=== PATIENT | female | born 1995 | race Caucasian/White ===

== ENCOUNTER → 2018-09-23 10:14 | Outpatient (CLI) | payer OTHER, MEDICAID, SELFPAY ==
[2018-09-23 12:26] LABS: Hemoglobin 11.7 g/dL (12.0-16.0)
[2018-09-23 13:42] LABS: GTT (PREG) 1 Hour PP 50gm Dose 144 mg/dL (76-139)
[2018-09-23 15:35] LABS: Hep C Virus Ab w/Reflex Quant NEGATIVE s/c (NEGATIVE)
== END ==
PROVIDERS: PCP Family Medicine
DX: Z34.02 Encounter for supervision of normal first pregnancy, second trimester (principal)
CPT/HCPCS: 36415; 82950; 85014; 85018; 86787; 86803

== ENCOUNTER 2018-10-05 12:15 | Outpatient (CLI) | payer OTHER, MEDICAID, SELFPAY ==
[2018-10-05 14:01] LABS: Appearance Urine UA CLEAR; Bilirubin Urine UA NEGATIVE (NEGATIVE); Color Urine UA YELLOW; Glucose Urine UA NEGATIVE (Negative); Ketones Urine UA NEGATIVE (NEGATIVE); Leukocyte Esterase Urine UA NEGATIVE (NEGATIVE); Nitrite Urine UA NEGATIVE (Negative); Occult Blood Urine UA NEGATIVE (Negative); Protein Urine UA NEGATIVE (Negative); Specific Gravity Urine UA 1.015 (1.000-1.035); Urobilinogen Urine UA 0.2 E.U./dL (0.2)
== END 2018-10-05 14:15 | disposition home or self-care (01) ==
LOC: LABOR 13:00 → OB 10-07 11:38
PROVIDERS: Family Provider Internal Medicine; PCP Family Medicine
DX: Z34.83 Encounter for supervision of other normal pregnancy, third trimester (principal); Z3A.29 29 weeks gestation of pregnancy
CPT/HCPCS: 59025; 59050; 81003; G0378; G0379

== ENCOUNTER → 2018-10-11 06:49 | Outpatient (CLI) | payer OTHER, MEDICAID, SELFPAY ==
[2018-10-11 09:09] LABS: Glucose Fasting Gestational 68 mg/dL (76-95)
== END ==
PROVIDERS: PCP Family Medicine
DX: R73.09 Other abnormal glucose (principal); Z34.02 Encounter for supervision of normal first pregnancy, second trimester
CPT/HCPCS: 36415; 82951; 82952

== ENCOUNTER → 2018-10-15 06:45 | Outpatient (CLI) | payer OTHER, MEDICAID, SELFPAY ==
[2018-10-15 09:41] LABS: Glucose Fasting 67 mg/dL (70-100)
[2018-10-15 09:44] LABS: Glucose 1 Hour 176 mg/dL (70-170)
[2018-10-15 10:26] LABS: Glucose Tol Interpretation INTERPRETATION
[2018-10-15 11:32] LABS: Glucose 2 Hour 140 mg/dL (70-140)
[2018-10-15 11:33] LABS: Glucose 3 Hour 169 mg/dL (70-115)
== END ==
PROVIDERS: PCP Family Medicine
DX: R73.09 Other abnormal glucose (principal)
CPT/HCPCS: 36415; 82951; 82952

== ENCOUNTER 2018-10-22 16:02 | Observation (INO) | payer OTHER, MEDICAID, SELFPAY ==
--- NOTE | 2018-10-22 16:45 | DI.US.S_ITS ---
PROCEDURE: US OB TRANSVAGINAL INDICATIONS: CERVICAL LENGTH OUTSIDE/PRIOR DATING DATA: Last menstrual period (LMP): 03/20/2018. LMP-based estimated date of delivery (YVON): 12/25/2018. TECHNIQUE: Real-time scanning was performed of the fetus, with image documentation. Transabdominal and transvaginal imaging was performed. COMPARISON: None. FINDINGS: A single living intrauterine gestation is present. Presentation: Vertex Placenta: Placental position is posterior, without previa. Amniotic fluid index: A 17.1 cm, normal range is 5-24 cm. heart rate: 175 beats per minute. Maternal cervical canal: 3.0 cm long. Normal lower limit is 2.5 cm. IMPRESSION: Single living intrauterine gestation with an estimated gestational age of approximately 30 weeks and 6 days. Maternal cervical length measures 3.0 cm. No sonographic evidence for funneling of the internal cervical os. Dictated by: Usman Singletary M.D. on 10/22/2018 at 19:21 Approved by: Usman Singletary M.D. on 10/22/2018 at 19:24
--- NOTE | 2018-10-22 18:29 | PM.OBTRLD ---
Visit Information Visit Information Date of evaluation: 10/22/18 Primary OB Provider: Barry Powers Reason for Evaluation: Yes pre-term labor Vital Signs Vital Signs: Blood pressure 107/64, pulse 111, temperature 97.1? PFSH Surgical History Status post tonsillectomy and adenoidectomy Family History Grandfather Age: 73 Cancer Heart disease Hypertension High cholesterol Grandmother Age: 72 Cancer Hypertension High cholesterol Mother Age: 46 High cholesterol Kidney stones Grandfather Age: 77 Diabetes mellitus Heart disease Hypertension High cholesterol Grandmother Age: 75 Cancer High cholesterol Family History Grandfather Age: 73 Cancer Heart disease Hypertension High cholesterol Grandmother Age: 72 Cancer Hypertension High cholesterol Mother Age: 46 High cholesterol Kidney stones Grandfather Age: 77 Diabetes mellitus Heart disease Hypertension High cholesterol Grandmother Age: 75 Cancer High cholesterol Review of Systems Review of Systems Patient complaining of cramping no rupture of membranes no fevers good movement. All systems reviewed & are unremarkable except as noted in HPI and below Evaluation Evaluation Baseline heart rate: 150 Variability: Moderate (11-25) monitor accelerations: Present monitor decelerations: Absent Contraction Frequency (minutes): 8 Uterine Contraction Intensity: Mild Category of Tracing: I Comments: Cervical length by ultrasound 3 cm this is unchanged from prior measurements. Diagnosis, Plan/Disposition Final Diagnosis (1) 31 weeks gestation of : Current Visit: Yes Status: Acute (2) Premature uterine contractions causing threatened premature labor in third trimester: Current Visit: Yes Status: Acute Plan/Disposition Plan: No evidence of cervical effacement. Patient was sent home to continue bed rest and follow up at her previously scheduled appointment in 4 days. OB Disposition: home
== END 2018-10-22 18:40 | disposition home or self-care (01) ==
PROVIDERS: PCP Family Medicine
DX: O60.03 Preterm labor without delivery, third trimester (principal); Z3A.31 31 weeks gestation of pregnancy
CPT/HCPCS: 59025; 59050; 76817; G0378; G0379

== ENCOUNTER 2018-11-10 16:40 | Outpatient (CLI) | payer OTHER, MEDICAID, SELFPAY ==
--- NOTE | 2018-11-10 17:08 | PM.OBTRLD ---
Visit Information Visit Information Date of evaluation: 11/10/18 Primary OB Provider: Tania Montanez Reason for Evaluation: Yes non-stress test non-stress test reason: other ( tachycardia on Doppler in office) PFSH Surgical History Status post tonsillectomy and adenoidectomy Family History Grandfather Age: 73 Cancer Heart disease Hypertension High cholesterol Grandmother Age: 72 Cancer Hypertension High cholesterol Mother Age: 46 High cholesterol Kidney stones Grandfather Age: 77 Diabetes mellitus Heart disease Hypertension High cholesterol Grandmother Age: 75 Cancer High cholesterol Family History Grandfather Age: 73 Cancer Heart disease Hypertension High cholesterol Grandmother Age: 72 Cancer Hypertension High cholesterol Mother Age: 46 High cholesterol Kidney stones Grandfather Age: 77 Diabetes mellitus Heart disease Hypertension High cholesterol Grandmother Age: 75 Cancer High cholesterol Evaluation Evaluation Baseline heart rate: 150 Variability: Moderate (11-25) monitor accelerations: Present monitor decelerations: Absent Contraction Frequency (minutes): 0 Diagnosis, Plan/Disposition Final Diagnosis (1) 34 weeks gestation of : Current Visit: Yes Status: Acute (2) Antepartum tachycardia affecting care of mother: Current Visit: Yes Status: Acute Plan/Disposition Plan: Reactive nonstress test with baseline 150 just a lot of accelerations overall reassuring OB Disposition: home
== END 2018-11-10 17:12 | disposition home or self-care (01) ==
LOC: OB 11-11 13:57
PROVIDERS: PCP Family Medicine
DX: O36.8390 Maternal care for abnormalities of the fetal heart rate or rhythm, unspecified trimester, not applicable or unspecified (principal); R10.2 Pelvic and perineal pain; Z3A.34 34 weeks gestation of pregnancy
CPT/HCPCS: 59025; 81001; 87086; G0378; G0379

== ENCOUNTER → 2018-11-10 16:41 | Outpatient (CLI) | payer OTHER, MEDICAID, SELFPAY ==
[2018-11-10 19:31] LABS: Appearance Urine UA CLEAR; Bilirubin Urine UA NEGATIVE (NEGATIVE); Color Urine UA YELLOW; Glucose Urine UA NEGATIVE (Negative); Ketones Urine UA NEGATIVE (NEGATIVE); Leukocyte Esterase Urine UA NEGATIVE (NEGATIVE); Nitrite Urine UA NEGATIVE (Negative); Occult Blood Urine UA TRACE-LYSED (Negative); Protein Urine UA NEGATIVE (Negative); Urobilinogen Urine UA 0.2 E.U./dL (0.2); pH Urine UA 6.5 (4.5-8.0)
[2018-11-10 20:09] LABS: Amorphous Sediment Urine 1+; Bacteria Urine Moderate (10-30); Culture Indicated Urine Specimen Cultured; Mucus Urine 1+ (Negative); RBC Urine 0-1/HPF (0-5/HPF); Squamous Epithelial Cell Urine 1-5 /HPF; Transitional Epi Cells Urine 0-1/HPF (0-5/HPF); WBC Urine 1-5/HPF (0-5/HPF)
== END ==
PROVIDERS: PCP Family Medicine; Visit Provider Specialist
DX: R10.2 Pelvic and perineal pain (principal)
CPT/HCPCS: 81001; 87086

== ENCOUNTER → 2018-11-11 10:48 | Outpatient (CLI) | payer OTHER, MEDICAID, SELFPAY ==
--- NOTE | 2018-11-11 10:50 | DI.US.S_ITS ---
PROCEDURE: US OB LIMITED INDICATIONS: Cervical length OUTSIDE/PRIOR DATING DATA: Last menstrual period (LMP): 03/12/2018. LMP-based estimated date of delivery (YVON): 12/25/2018. First dating scan (date and location): Not available. Estimated date of delivery (YVON) from first dating scan: Not available. TECHNIQUE: Real-time scanning was performed of the fetus, with image documentation and biometric measurements. Endovaginal scanning: performed COMPARISON: [facility], OB TRANSVAGINAL, 10/22/2018, 18:18. [facility], OB >= 14 WEEKS FETUS, 11/05/2018, 11:46. FINDINGS: General: A single living intrauterine gestation is present. Presentation: Vertex Placenta: Placental position is posterior, without previa. Amniotic fluid index: 21 cm, normal range is 5-24 cm. heart rate: 145 beats per minute. Maternal cervical canal: 2.6 cm long. Lower normal limit is 2.5 cm. IMPRESSION: 1. A single living intrauterine gestation redemonstrated. 2. The cervical length is 2.6 cm. Dictated by: Jorge Morin M.D. on 11/11/2018 at 13:08 Approved by: Jorge Morin M.D. on 11/11/2018 at 13:12
== END ==
PROVIDERS: PCP Family Medicine
DX: O47.03 False labor before 37 completed weeks of gestation, third trimester (principal)
CPT/HCPCS: 76815; 76817

== ENCOUNTER → 2018-11-18 09:10 | Outpatient (CLI) | payer OTHER, MEDICAID, SELFPAY ==
[2018-11-19 17:26] LABS: Strep Grp B PCR NEG for Grp B Strep
== END ==
PROVIDERS: PCP Family Medicine
DX: Z34.82 Encounter for supervision of other normal pregnancy, second trimester (principal); Z3A.35 35 weeks gestation of pregnancy
CPT/HCPCS: 87653

== ENCOUNTER 2018-12-04 07:59 | Outpatient (CLI) | payer OTHER, MEDICAID, SELFPAY | END 2018-12-04 08:50 | disposition home or self-care (01) | LOC: LABOR 08:05 → OB 12-07 08:03 | PROVIDERS: PCP Family Medicine; Visit Provider Obstetrics & Gynecology | DX: Z34.93 Encounter for supervision of normal pregnancy, unspecified, third trimester (principal) | CPT/HCPCS: 59025; 84112; G0378; G0379 ==

== ENCOUNTER 2018-12-04 23:00 | Inpatient (IN) | payer OTHER, MEDICAID, SELFPAY ==
[2018-12-05 00:53] LABS: Add Manual Diff / Slide Review NO; Basophils Absolute Auto 0 /uL (0-100); Basophils Percent Auto 0.5 % (0-2); Eosinophils Absolute Auto 100 /uL (0-450); Eosinophils Percent Auto 0.9 % (2-4); Hematocrit 34.3 % (36-46); Hemoglobin 11.7 g/dL (12.0-16.0); Lymphocytes Absolute Auto 2500 /uL (1100-4500); Mean Corpuscular Hemoglobin 29.9 PG (26-34); Mean Corpuscular Volume 87.8 fL (80-100); Monocytes Absolute Auto 500 /uL (0-900); Monocytes Percent Auto 5.4 % (3-14); Neutrophils Absolute Auto 5800 /uL (1500-7000); Neutrophils Percent Auto 65.2 % (50-75); Platelet Count 218 X10^3/uL (150-400); Red Blood Cell Count 3.91 X10^6/uL (4.0-5.2); Red Cell Distribution Width 13.1 % (11.6-14.8); White Blood Cell Count 8.9 X10^3/uL (4.5-11.0)
[2018-12-05] MEDS: LACTATED RINGERS 1,000 ML 100 ML IV (00:57)
[2018-12-05 01:44] VITALS: BP 162/63
--- NOTE | 2018-12-05 05:35 | PM.OBHP.1 ---
OB HPI Date/Time Date of admission: 12/05/18 Date Patient Seen: 12/05/18 Time Patient Seen: 05:35 History of Present Condition Chief complaint: eval of labor : 1 Para: 0 Estimated Date of Delivery: 12/21/18 Estimated Gestational Age (weeks): 37+4 Narrative: Heaven Figueroa is a 23 year old female 1 para 0 at 37 and 4 7th weeks gestation who presented in active labor History of Present care: good care, initiated at week # (Care in [place],) and number of visits (10 visits here) Dating criteria: LMP confirmed by 1st trimester US Obstetrical complications: other (shortened cervix) Medical complications: none Preadmission Labs Blood type: A (+) positive -: Antibody screen: negative, GBS status: negative, HBsAG: negative, HIV: negative and RPR/VDLR: negative -: Chlamydia screen: not detected and Gonorrhea screen: not detected -: Rubella: immune and Varicella: immune HCT: 35 HCAB: negative Urine: Negative 1 hr GTT: 144 3 hr GTT: 1 hr (176), 2 hr (140) and 3 hr (169) Fasting blood glucose: 67 Evaluation Evaluation Baseline heart rate: 130 Variability: Moderate (11-25) monitor accelerations: Present monitor decelerations: Variable Contraction Frequency (minutes): 3 Uterine Contraction Intensity: Strong/Firm Category of Tracing: II Cervical dilation (cm): 9 Cervical effacement (%): 100 station: +1 Laboratory results: Laboratory Tests 12/04/18 12/04/18 23:45 23:45 WBC 8.9 RBC 3.91 L Hgb 11.7 L Hct 34.3 L MCV 87.8 MCH 29.9 MCHC 34.0 RDW 13.1 Plt Count 218 Neut % (Auto) 65.2 Lymph % (Auto) 28.0 Wilson % (Auto) 5.4 Eos % (Auto) 0.9 L Baso % (Auto) 0.5 Neut # (Auto) 5800 Lymph # (Auto) 2500 Wilson # (Auto) 500 Eos # (Auto) 100 Baso # (Auto) 0 Blood Type A Positive Antibody Screen Negative PFSH Surgical History (Updated 12/22/17 @ 06:27 by Conversion Provider) Status post tonsillectomy and adenoidectomy Family History (Updated 03/03/17 @ 00:00 by Conversion Provider) Grandfather Age: 73 Cancer Heart disease Hypertension High cholesterol Grandmother Age: 72 Cancer Hypertension High cholesterol Mother Age: 46 High cholesterol Kidney stones Grandfather Age: 77 Diabetes mellitus Heart disease Hypertension High cholesterol Grandmother Age: 75 Cancer High cholesterol Family History (Updated 03/03/17 @ 00:00 by Conversion Provider) Grandfather Age: 73 Cancer Heart disease Hypertension High cholesterol Grandmother Age: 72 Cancer Hypertension High cholesterol Mother Age: 46 High cholesterol Kidney stones Grandfather Age: 77 Diabetes mellitus Heart disease Hypertension High cholesterol Grandmother Age: 75 Cancer High cholesterol Meds Home Medications Medication Instructions Recorded Confirmed Type 1 tab PO DAILY 09/02/18 11/10/18 History vitamin,calcium,ghyfnxyv-[id number] acid tablet venlafaxine ER 75 mg 75 mg PO QDAY #90 cap 09/03/18 11/10/18 Rx capsule,extended release 24 hr breast pump #1 each 12/03/18 12/03/18 Rx Allergies Allergy/AdvReac Type Severity Reaction Status Date / Time clonidine [CLONIDINE] Allergy Mild RASH Verified 11/10/18 16:21 Exam Vital Signs (past 8 hours): - 12/05/18 01:44 Blood Pressure 162/63 H Narrative Exam Narrative: Generally: Patient comfortable with epidural, lying on right side Lungs: Clear to auscultation bilaterally Cardiovascular: Regular rate and rhythm Fundal height: 37 cm Estimated weight: 6-1/2 lb Extremities: Negative Homans, no edema Objective Labs Result Diagrams: 12/04/18 23:45 Labs: Laboratory Results - last 24 hr 12/04/18 12/04/18 23:45 23:45 WBC 8.9 RBC 3.91 L Hgb 11.7 L Hct 34.3 L MCV 87.8 MCH 29.9 MCHC 34.0 RDW 13.1 Plt Count 218 Neut % (Auto) 65.2 Lymph % (Auto) 28.0 Wilson % (Auto) 5.4 Eos % (Auto) 0.9 L Baso % (Auto) 0.5 Neut # (Auto) 5800 Lymph # (Auto) 2500 Wilson # (Auto) 500 Eos # (Auto) 100 Baso # (Auto) 0 Blood Type A Positive Antibody Screen Negative Assessment and Plan Assessment and Plan Assessment and Plan narrative: Assessment: 23-year-old 1 para 0 at 37 and 4 7th weeks gestation in active labor with intact bag Pain well controlled with epidural Plan: Artificial rupture of membranes performed with copious amounts of clear amniotic fluid Right side with peanut ball Expected management to spontaneous vaginal delivery Time Spent with Patient Total time spent with greater than 50% in coordination of care (as documented) at patient's floor/unit and/or counseling patient:: less than 15 minutes
[2018-12-05] MEDS: OXYTOCIN 10 UNIT/ML VIAL IM (08:31)
--- NOTE | 2018-12-05 09:14 | PM.OBPRVD ---
Delivery date: 12/05/18 Cervical ripening method: none Induction method: none Delivery monitor: external FHT and external uterine Route of delivery: vacuum extraction Indication for instrumentation: maternal exhaustion Episiotomy description: None L&D Laceration Description: Perineal - 2nd Degree and Vaginal - 2nd Degree Delivery repair: vicryl and chromic Estimated blood loss (mL): 250 Anesthesia type: Epidural Complications: None Narrative: Patient complete and pushed for 2.5+ hours. Due to maternal exhaustion, a vacuum was applied. With 2 contractions, the vertex was delivered with vacuum assistance over an intact perineum at 8:22 a.m.. The vacuum was removed. There was 1 pop-off. The remainder of the body delivered without difficulty and was placed on mom's abdomen. The cord was double clamped and cut. Cord bloods were obtained. The placenta delivered intact with a 3 vessel cord at 8:32 a.m.. 10 units of Pitocin were given in the IV fluids. The fundus was massaged to firm. A second-degree vaginal and perineal laceration were noted and repaired in the usual fashion. A rectal exam was performed and there were no tears or stitches in the rectum. Estimated blood loss 250 cc. Apgars 8 at 1 minute and 9 at 5 minute. . Epidural analgesia. Mom and infant stable to recovery. Plan for aftercare: To routine care
[2018-12-05 10:30] VITALS: TEMP 37.1
[2018-12-05] MEDS: IBUPROFEN 600 MG TABLET PO ×3 (10:30→22:59)
[2018-12-06 05:29] LABS: Hematocrit 24.1 % (36-46); Hemoglobin 8.2 g/dL (12.0-16.0)
[2018-12-06] MEDS: IBUPROFEN 600 MG TABLET PO ×2 (05:39→11:38)
--- NOTE | 2018-12-06 08:45 | P.PNOB_ITS ---
Subjective - OB Patient comments: no complaints and pain well controlled [place] feeding status: exclusively breast feeding Narrative: Patient post delivery doing well Date Patient Seen: 12/06/18 Time Patient Seen: 08:44 Exam Vital Signs (past 8 hours): Fundus U minus two Lochia scant Objective Labs Result Diagrams: 12/06/18 05:15 Labs: Laboratory Results - last 24 hr 12/06/18 05:15 Hgb 8.2 L Hct 24.1 L Assessment & Plan Plan day: 1 plan OB: routine care Comments: Patient doing well though substantial decrease in hematocrit Patient asymptomatic Will be placed on iron supplementation Time Spent With Patient Total time spent is greater than 50% in coordination of care (as documented) at patient's floor/unit and/or counseling patient: less than 15 minutes
[2018-12-06] MEDS: DOCUSATE 250 MG CAPSULE PO (08:50)
[2018-12-06] MEDS: VENLAFAXINE ER 75 MG CAP PO (08:54)
== END 2018-12-06 14:30 | disposition home or self-care (01) | DRG 560 ==
PROVIDERS: Admitting Provider Obstetrics & Gynecology; PCP Family Medicine; Visit Provider Obstetrics & Gynecology
DX: O75.81 Maternal exhaustion complicating labor and delivery (principal); O70.1 Second degree perineal laceration during delivery; Z3A.37 37 weeks gestation of pregnancy; Z37.0 Single live birth
CPT/HCPCS: 01967; 36415; 59025; 59409; 84112; 85014; 85018; 85025; 86850; 86900; 86901; G0378; G0379; J2590

== ENCOUNTER → 2019-08-30 07:47 | Outpatient (CLI) | payer OTHER, MEDICAID, SELFPAY ==
[2019-08-30 08:49] LABS: Add Manual Diff / Slide Review NO; Basophils Absolute Auto 100 /uL (0-100); Basophils Percent Auto 1.1 % (0-2); Eosinophils Absolute Auto 100 /uL (0-450); Eosinophils Percent Auto 2.3 % (2-4); Hematocrit 43.8 % (36-46); Lymphocytes Absolute Auto 2500 /uL (1100-4500); Lymphocytes Percent Auto 46.3 % (25-40); Mean Corpuscular HGB Conc 34.3 % (30-36); Mean Corpuscular Hemoglobin 29.4 PG (26-34); Mean Corpuscular Volume 85.7 fL (80-100); Monocytes Absolute Auto 300 /uL (0-900); Monocytes Percent Auto 5.2 % (3-14); Neutrophils Absolute Auto 2500 /uL (1500-7000); Neutrophils Percent Auto 45.1 % (50-75); Platelet Count 276 X10^3/uL (150-400); Red Blood Cell Count 5.11 X10^6/uL (4.0-5.2); Red Cell Distribution Width 13.3 % (11.6-14.8); White Blood Cell Count 5.5 X10^3/uL (4.5-11.0)
== END ==
PROVIDERS: PCP Family Medicine; Visit Provider Family Medicine
DX: D64.9 Anemia, unspecified (principal)
CPT/HCPCS: 36415; 85025

== ENCOUNTER → 2020-03-08 11:36 | Outpatient (CLI) | payer OTHER, MEDICAID, SELFPAY ==
[2020-03-08 13:10] LABS: Appearance Urine UA CLEAR; Bilirubin Urine UA NEGATIVE (NEGATIVE); Color Urine UA YELLOW; Glucose Urine UA NEGATIVE (Negative); Ketones Urine UA TRACE (NEGATIVE); Leukocyte Esterase Urine UA NEGATIVE (NEGATIVE); Nitrite Urine UA NEGATIVE (Negative); Occult Blood Urine UA 2+ (Negative); Protein Urine UA NEGATIVE (Negative); Urobilinogen Urine UA 0.2 E.U./dL (0.2)
[2020-03-08 13:31] LABS: Bacteria Urine Few (2-10); RBC Urine 5-10/HPF (0-5/HPF); Squamous Epithelial Cell Urine 0-1 /HPF (0-5/HPF); WBC Urine 0-1/HPF (0-5/HPF)
[2020-03-08 13:32] LABS: Culture Indicated Urine Cult Not Indicated; Mucus Urine 1+ (Negative)
== END ==
PROVIDERS: PCP Family Medicine; Referring Provider Obstetrics & Gynecology; Visit Provider Obstetrics & Gynecology
DX: R39.9 Unspecified symptoms and signs involving the genitourinary system (principal)
CPT/HCPCS: 81001

== ENCOUNTER → 2020-08-15 07:04 | Outpatient (CLI) | payer OTHER, MEDICAID, SELFPAY ==
--- NOTE | 2020-08-15 07:05 | DI.US.S_ITS ---
PROCEDURE: US PELVIC COMPLETE INDICATIONS: PAIN; HISTORY OVARIAN CYST TECHNIQUE: Real-time scanning was performed of the pelvic organs, with image documentation. Additional endovaginal scanning was necessary due to incomplete visualization of the adnexal and endometrial structures by transabdominal scanning. COMPARISON: [facility], , PELVIC COMPLETE, 08/20/2017, 14:18. FINDINGS: Transabdominal scanning: Limited scanning through the kidneys shows no hydronephrosis. No pathologic free abdominal or pelvic fluid. Endovaginal scanning: Uterus: Uterus is normal in size at 6.1 x 2.4 x 4.1 cm. The endometrium measures 2.4 mm in combined thickness. Ovaries: Normal ovaries measuring 3.0 x 2.4 x 2.3 cm on the right and 3.2 x 1.5 x 2.3 cm on the left. Multiple bilateral follicular cyst. IMPRESSION: No source for pelvic pain identified. Dictated by: Tony FRANK Interpreted: Marty Constantino MD on 08/15/2020 at 8:48 Approved by: Marty Constantino M.D. on 08/15/2020 at 12:03
== END ==
PROVIDERS: PCP Family Medicine; Referring Provider Obstetrics & Gynecology; Visit Provider Obstetrics & Gynecology
DX: R10.2 Pelvic and perineal pain (principal); R10.9 Unspecified abdominal pain; N83.02 Follicular cyst of left ovary; N83.01 Follicular cyst of right ovary
CPT/HCPCS: 76830; 76856

== ENCOUNTER → 2020-12-18 09:38 | Outpatient (CLI) | payer OTHER, MEDICAID, SELFPAY | PROVIDERS: PCP Nurse Practitioner Family; Visit Provider Physician Assistant | DX: R30.0 Dysuria (principal) | CPT/HCPCS: 87077; 87086; 87186 ==

== ENCOUNTER → 2021-07-23 09:04 | Outpatient (CLI) | payer OTHER, MEDICAID, SELFPAY ==
--- NOTE | 2021-07-23 09:05 | DI.US.S_ITS ---
PROCEDURE: US OB <= 14 WEEKS FETUS INDICATIONS: INITIAL VIABILITY DATING. OUTSIDE/PRIOR DATING DATA: Last menstrual period (LMP): 04/26/2021. LMP-based estimated date of delivery (YVON): 01/31/2022. First dating scan (date and location): 07/23/2021. Estimated date of delivery (YVON) from first dating scan: 01/29/2022. The calculations are made using the ultrasound generated YVON of 01/29/2022. TECHNIQUE: Real-time scanning was performed of the fetuses and maternal pelvic organs, with image documentation. Endovaginal scanning: Performed for better visualization of the fetuses and maternal adnexal structures. COMPARISON: None. FINDINGS: There is a single live intrauterine gestation with a crown-rump length of 6.5 centimeters, corresponding to gestational age of 12 weeks 6 days. A heart rate is detected at 155 beats per minute. The cervix measures 3.8 centimeters in length. IMPRESSION: Single live intrauterine gestation with estimated ultrasound age of 12 weeks 6 days. Dictated by: David Nicholson M.D. on 07/23/2021 at 10:47 Approved by: David Nicholson M.D. on 07/23/2021 at 10:49
[2021-07-23 10:35] LABS: Add Manual Diff / Slide Review NO; Basophils Absolute Auto 0 /uL (0-100); Basophils Percent Auto 0.7 % (0-2); Eosinophils Absolute Auto 200 /uL (0-450); Eosinophils Percent Auto 2.3 % (2-4); Hematocrit 38.6 % (36-46); Hemoglobin 13.2 g/dL (12.0-16.0); Lymphocytes Absolute Auto 1400 /uL (1100-4500); Lymphocytes Percent Auto 20.9 % (25-40); Mean Corpuscular HGB Conc 34.2 % (30-36); Mean Corpuscular Volume 87.6 fL (80-100); Monocytes Absolute Auto 400 /uL (0-900); Monocytes Percent Auto 5.3 % (3-14); Neutrophils Absolute Auto 4700 /uL (1500-7000); Neutrophils Percent Auto 70.8 % (50-75); Platelet Count 286 X10^3/uL (150-400); Red Blood Cell Count 4.41 X10^6/uL (4.0-5.2); Red Cell Distribution Width 13.3 % (11.6-14.8); White Blood Cell Count 6.7 X10^3/uL (4.5-11.0)
[2021-07-23 11:11] LABS: Hepatitis B Surface Antigen NEGATIVE s/c (NEGATIVE)
[2021-07-23 11:28] LABS: HIV 1 & 2 Ab/Ag 4th Gen Combo NEGATIVE (NEGATIVE); Hep C Virus Ab w/Reflex Quant NEGATIVE s/c (NEGATIVE)
[2021-07-23 12:09] LABS: Appearance Urine UA SL CLOUDY; Bilirubin Urine UA NEGATIVE (NEGATIVE); Color Urine UA YELLOW; Glucose Urine UA NEGATIVE (Negative); Ketones Urine UA NEGATIVE (NEGATIVE); Leukocyte Esterase Urine UA NEGATIVE (NEGATIVE); Nitrite Urine UA NEGATIVE (Negative); Occult Blood Urine UA TRACE-INTACT (Negative); Protein Urine UA NEGATIVE (Negative); Urobilinogen Urine UA 0.2 E.U./dL (0.2)
[2021-07-24 10:07] LABS: RPR Screen Non Reactive (Non Reactive)
[2021-07-24 11:24] LABS: Varicella IgG Antibody 199 index (Immune >165)
== END ==
PROVIDERS: PCP Nurse Practitioner Family; Referring Provider Obstetrics & Gynecology; Visit Provider Obstetrics & Gynecology
DX: Z34.81 Encounter for supervision of other normal pregnancy, first trimester (principal); Z3A.12 12 weeks gestation of pregnancy
CPT/HCPCS: 36415; 76801; 80055; 81003; 86787; 86803; 86850; 86900; 86901; 87086; 87389

== ENCOUNTER → 2021-07-26 08:51 | Outpatient (CLI) | payer OTHER, MEDICAID, SELFPAY ==
[2021-07-26 14:57] LABS: Urine N gonorrhoeae NOT DETECTED
[2021-07-26 15:13] LABS: Urine Chlamydia NOT DETECTED
== END ==
PROVIDERS: PCP Nurse Practitioner Family; Visit Provider Obstetrics & Gynecology
DX: Z34.81 Encounter for supervision of other normal pregnancy, first trimester (principal); Z3A.13 13 weeks gestation of pregnancy
CPT/HCPCS: 87491; 87591

== ENCOUNTER 2021-07-31 16:26 | Emergency (ER) | payer OTHER, MEDICAID, SELFPAY ==
[2021-07-31 16:45] VITALS: BP 124/59; PULSE 103; RESP 16; TEMP 36.6; O2SAT 100; BMI 17.2
--- NOTE | 2021-07-31 16:56 | DI.US.S_ITS ---
PROCEDURE: US OB <= 14 WEEKS FETUS INDICATIONS: cramping, ? bleeding, 13 weeks OUTSIDE/PRIOR DATING DATA: Last menstrual period (LMP): 04/26/2021. LMP-based estimated date of delivery (YVON): 01/31/2021. First dating scan (date and location): 07/23/2021. Estimated date of delivery (YVON) from first dating scan: 01/29/2022. The calculations are made using the ultrasound YVON of 07/23/2021. TECHNIQUE: Real-time scanning was performed of the fetus and maternal pelvic organs, with image documentation. Endovaginal scanning was also performed to better visualize the fetus and maternal ovaries. COMPARISON: [facility], US, US OB <= 14 WEEKS FETUS, 07/23/2021, 10:09. FINDINGS: Embryo: 8.3 cm, 14 weeks 2 days Heart rate: 143 beats per minute Maternal organs: Right ovary not seen. Hypoechoic lesion of left ovary, of uncertain etiology, 1.6 cm in maximum diameter. This may have been present on the previous study. IMPRESSION: 1. Living early 2nd trimester intrauterine with crown-rump length measuring 14 weeks 2 days. This is 2 days greater than the size based on initial ultrasound. 2. Small nonspecific left ovarian hypoechoic lesion. Likely an incidental finding. We strive to produce accurate, complete, and clear reports of imaging services. To assist us in improving patient care, this report was composed using standard report templates and voice recognition software. Therefore, it may contain abnormal punctuation, insertions and/or omissions. Occasional wrong-word or sound-alike substitutions may occur. Though we review the report and make efforts to correct it, we do recommend that the report be read carefully in proper context to recognize any text inaccuracies. Dictated by: Joe Potter M.D. on 07/31/2021 at 18:11 Approved by: Joe Potter M.D. on 07/31/2021 at 18:14
[2021-07-31 18:12] LABS: Add Manual Diff / Slide Review NO; Basophils Absolute Auto 100 /uL (0-100); Basophils Percent Auto 0.7 % (0-2); Eosinophils Absolute Auto 200 /uL (0-450); Eosinophils Percent Auto 2.1 % (2-4); Hematocrit 36.1 % (36-46); Hemoglobin 12.7 g/dL (12.0-16.0); Lymphocytes Absolute Auto 2300 /uL (1100-4500); Lymphocytes Percent Auto 28.1 % (25-40); Mean Corpuscular HGB Conc 35.2 % (30-36); Mean Corpuscular Hemoglobin 30.4 PG (26-34); Mean Corpuscular Volume 86.2 fL (80-100); Monocytes Absolute Auto 500 /uL (0-900); Monocytes Percent Auto 6.4 % (3-14); Neutrophils Absolute Auto 5000 /uL (1500-7000); Neutrophils Percent Auto 62.7 % (50-75); Platelet Count 275 X10^3/uL (150-400); Red Blood Cell Count 4.18 X10^6/uL (4.0-5.2); Red Cell Distribution Width 13.3 % (11.6-14.8)
[2021-07-31 18:25] LABS: Alanine Aminotransferase 12 IU/L (<35); Albumin 3.9 g/dL (3.5-5.0); Albumin Globulin Ratio 1.5 (1.0-2.8); Alkaline Phosphatase 43 U/L (38-126); Aspartate Aminotransferase 21 IU/L (14-36); BUN Creatinine Ratio 19.4 (6-22); Bilirubin Total 0.2 mg/dL (0.2-1.3); Blood Urea Nitrogen 12 mg/dL (7-17); Calcium 9.3 mg/dL (8.4-10.2); Carbon Dioxide 28 mmol/L (22-32); Chloride 101 mmol/L (98-107); Estimated Glomerular Filt Rate > 60.0 mL/min (>60); Globulin 2.6 g/dL (1.7-4.1); Glucose 89 mg/dL (70-100); HEMOLYSIS < 15 (0-50); Lipase 1159 U/L (23-300); Potassium 3.9 mmol/L (3.4-5.1); Sodium 137 mmol/L (137-145); Total Protein 6.5 g/dL (6.3-8.2)
[2021-07-31 19:06] LABS: HCG Quantitative /Beta subunit 124000 mIU/mL
--- NOTE | 2021-07-31 20:38 | ED_ITS ---
HPI - General Adult General Chief complaint: Abdominal Pain Stated complaint: lower back and abd pain, 13 weeks Time Seen by Provider: 07/31/21 16:55 Source: patient Mode of arrival: Ambulatory History of Present Illness HPI narrative: Patient is a 25-year-old female. at approximately 13 weeks EGA who is here for evaluation of approximately 24 hours of lower back pain and abdominal discomfort. She is not having any vaginal bleeding. No vaginal discharge. No urinary symptoms although she does state that she is having some bright red blood per rectum. No pain with rectal bleeding. She is having some nausea but this is not unusual for her given her status. No fevers. Has not tried anything for the symptoms prior to arrival. She did contact her primary OB provider who told her to come to the emergency department for evaluation. Related Data Home Medications Medication Instructions Recorded Confirmed prenat.vits,shivani,[id number] 1 tab PO DAILY 09/02/18 05/04/21 Previous Rx's Medication Instructions Recorded venlafaxine 37.5 mg 37.5 mg PO DAILY #90 cap 12/07/20 capsule,extended release 24 hr venlafaxine 75 mg capsule,extended 75 mg PO QDAY #90 cap 12/07/20 release 24 hr (Effexor XR) ondansetron 4 mg disintegrating 4 mg PO Q6H PRN #20 tab 06/17/21 tablet Allergies Allergy/AdvReac Type Severity Reaction Status Date / Time clonidine [CLONIDINE] Allergy Mild RASH Verified 05/04/21 15:58 Review of Systems Cardiovascular Cardiovascular: Reports system reviewed and no additional complaints, except as documented Respiratory Respiratory: Reports system reviewed and no additional complaints, except as documented Gastrointestinal Gastrointestinal: Reports as per HPI and Reports system reviewed and no additional complaints, except as documented Genitourinary Genitourinary: Reports system reviewed and no additional complaints, except as documented Musculoskeletal Musculoskeletal: Reports system reviewed and no additional complaints, except as documented Integumentary/Breasts Skin/Breast: Reports system reviewed and no additional complaints, except as documented Neurologic Neurologic: Reports system reviewed and no additional complaints, except as documented Endocrine Endocrine: Reports system reviewed and no additional complaints, except as documented Hematologic/Lymphatic On Anticoagulants: No Patient History Medical History Encounter for wellness examination in adult (12/04/20) No significant medical problems Surgical History (Updated 07/22/21 @ 12:46 by Wanad Heck, RN) Aneurysm of unspecified site Status post tonsillectomy and adenoidectomy Family History (Updated 07/22/21 @ 09:19 by Wanda Heck, RN) Grandfather Age: 76 Cancer Heart disease Hypertension High cholesterol Grandmother Age: 75 Cancer Hypertension High cholesterol Mother Age: 49 High cholesterol Kidney stones Cancer Grandfather Age: 80 Diabetes mellitus Heart disease Hypertension High cholesterol Grandmother Age: 78 Cancer High cholesterol Social History marital status: unmarried,living together number of children: 1 household members: significant other and children lives independently: Yes caregiver/support person: Yes housing: house pets and animals: Yes (Cat - aware of litter and Toxo, Dog) education level: college occupational status: employed current occupational exposures/hazards: Yes (Chemicals, cat 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, 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) Previous occupational history: [employer] travel history: over 6 months ago seatbelt use: always water heater temp set < 120 deg: Yes working smoke detector in home: Yes fire extinguisher in home: No carbon monox detector in home: Yes firearms in home: Yes (In safe in locked room) firearms unloaded and locked: Yes do you feel safe at home: Yes Smoking Status: Never smoker second hand exposure: No alcohol intake: never substance use type: does not use during the past year weight has: remained stable well-balanced diet: daily or most days daily servings fruits/ve or more times/day caffeine: Yes (Small amout discusse 200 mg) Type(s) of exercise: walking frequency: 1-2 times per week Smoking Status: Never smoker Substance Use Type: does not use Exam Initial Vital Signs Initial Vital Signs: Vital Signs Temperature 97.8 F 07/31/21 16:45 Pulse Rate 103 H 07/31/21 16:45 Respiratory Rate 16 07/31/21 16:45 Blood Pressure 124/59 L 07/31/21 16:45 Pulse Oximetry 100 07/31/21 16:45 Const General: cooperative, healthy appearing, comfortable and well developed Limitations: mental status not altered HENMT Head: normal to inspection and normocephalic Resp Effort & Inspection: normal respiratory effort Cardio Rate: regular rate GI Inspection: non-distended Palpation: soft, No firm and No tender Back/Spine/Pelvis Back: normal to inspection Skin General: no rashes or lesions noted Neuro General: patient alert, patient awake and moves all extremities Extrem General: capillary refill normal Psych Appearance: grossly normal and well kempt Course Orders Ordered: ED Orders 07/31/21 18:02 ABO RH Type Stat Complete Blood Count AUTO DIFF Stat Comprehensive Metabolic Panel Stat HCG Quantitative /Beta subunit Stat Lipase Stat Vital Signs Vital signs: Vital Signs - 8 hr 07/31/21 16:45 Temperature 97.8 F Pulse Rate 103 H Respiratory Rate 16 Blood Pressure 124/59 L Pulse Oximetry 100 Medical Decision Making Lab Data Lab results reviewed: Yes I reviewed the patient's lab results. Result diagrams: 07/31/21 18:02 07/31/21 18:02 Labs: Lab Results 07/31/21 07/31/21 07/31/21 Range/Units 18:02 18:02 18:02 WBC 8.0 (4.5-11.0) X10^3/uL RBC 4.18 (4.0-5.2) X10^6/uL Hgb 12.7 (12.0-16.0) g/dL Hct 36.1 (36-46) % MCV 86.2 (80-100) fL MCH 30.4 (26-34) PG MCHC 35.2 (30-36) % RDW 13.3 (11.6-14.8) % Plt Count 275 (150-400) X10^3/uL Neut % (Auto) 62.7 (50-75) % Lymph % (Auto) 28.1 (25-40) % [place] % (Auto) 6.4 (3-14) % Eos % (Auto) 2.1 (2-4) % Baso % (Auto) 0.7 (0-2) % Neut # (Auto) 5000 (9979-6485) /uL Lymph # (Auto) 2300 (7432-6492) /uL [place] # (Auto) 500 (0-900) /uL Eos # (Auto) 200 (0-450) /uL Baso # (Auto) 100 (0-100) /uL Sodium 137 (137-145) mmol/L Potassium 3.9 (3.4-5.1) mmol/L Chloride 101 (98-107) mmol/L Carbon Dioxide 28 (22-32) mmol/L BUN 12 (7-17) mg/dL Creatinine 0.62 (0.52-1.04) mg/dL Estimated GFR > 60.0 (>60) mL/min BUN/Creatinine Ratio 19.4 (6-22) Glucose 89 (70-100) mg/dL Calcium 9.3 (8.4-10.2) mg/dL Total Bilirubin 0.2 (0.2-1.3) mg/dL AST 21 (14-36) IU/L ALT 12 (<35) IU/L Alkaline Phosphatase 43 (38-126) U/L Total Protein 6.5 (6.3-8.2) g/dL Albumin 3.9 (3.5-5.0) g/dL Globulin 2.6 (1.7-4.1) g/dL Albumin/Globulin Ratio 1.5 (1.0-2.8) Lipase 1159 H (23-300) U/L HCG, Quant 584258 mIU/mL Blood Type A Positive Point of Care Testing Test Results Positive Urine Dip Bedside Urine Glucose Negative Bedside Urine Bilirubin - Negative Bedside Urine Ketone - Negative Urine Specific [place] 1.020 Bedside Urine Occult Blood +/- Bedside Urine pH 6.0 Bedside Urine Protein - Negative Bedside Urine Urobilinogen - Negative Bedside Urine Nitrite - Negative Bedside Urine Leukocytes - Negative Esterase Point of care testing: Point of Care Testing Test Results Positive Urine Dip Bedside Urine Glucose Negative Bedside Urine Bilirubin - Negative Bedside Urine Ketone - Negative Urine Specific [place] 1.020 Bedside Urine Occult Blood +/- Bedside Urine pH 6.0 Bedside Urine Protein - Negative Bedside Urine Urobilinogen - Negative Bedside Urine Nitrite - Negative Bedside Urine Leukocytes - Negative Esterase Imaging Data US - OB: Radiologist's Impression: [address] [address] Ultrasound Report Signed Patient: Heaven Figueroa MR#: [id number] : 1995 Acct:[id number] Age/Sex: 25 / F Date of Service: 07/31/21 Loc: ED Accession Number: [id number] ?? Procedure: US OB <= 14 weeks fetus Ordering Provider: Nahomi Guerrero D.O. PROCEDURE:? US OB <= 14 WEEKS FETUS ? INDICATIONS:? cramping, ? bleeding, 13 weeks ? OUTSIDE/PRIOR DATING DATA:? Last menstrual period (LMP):? 04/26/2021.? LMP-based estimated date of delivery (YVON):? 01/31/2021.? First dating scan (date and location):? 07/23/2021.? Estimated date of delivery (YVON) from first dating scan:? 01/29/2022. The calculations are made using the ultrasound YVON of 07/23/2021. ? TECHNIQUE:? Real-time scanning was performed of the fetus and maternal pelvic organs, with image documentation.? Endovaginal scanning was also performed to better visualize the fetus and maternal ovaries.? ? COMPARISON:? [facility], , OB <= 14 WEEKS FETUS, 07/23/2021, 10:09. ? FINDINGS:? ? Embryo:? 8.3 cm, 14 weeks 2 days Heart rate:? 143 beats per minute ? Maternal organs:? Right ovary not seen.? Hypoechoic lesion of left ovary, of uncertain etiology, 1.6 cm in maximum diameter.? This may have been present on the previous study. ? ? IMPRESSION: ? 1. Living early 2nd trimester intrauterine with crown-rump length measuring 14 weeks 2 days.? This is 2 days greater than the size based on initial ultrasound. ? 2. Small nonspecific left ovarian hypoechoic lesion.? Likely an incidental finding.? ? We strive to produce accurate, complete, and clear reports of imaging services. To assist us in improving patient care, this report was composed using standard report templates and voice recognition software. Therefore, it may contain abnormal punctuation, insertions and/or omissions. Occasional wrong-word or sound-alike substitutions may occur. Though we review the report and make efforts to correct it, we do recommend that the report be read carefully in proper context to recognize any text inaccuracies. ? ? ? Dictated by: Joe Potter M.D. on 07/31/2021 at 18:11 ? ? Approved by: Joe Potter M.D. on 07/31/2021 at 18:14?? MDM Narrative Medical decision making narrative: Labs are unremarkable, ultrasound shows live intrauterine . Patient is Rh positive. I did not perform a rectal exam. I did discuss this with the patient and she opted to hold on this for now. We did discuss the possibility of internal hemorrhoids causing her symptoms. She is fairly certain that the bleeding is coming from her rectum and not from her vagina. We did discuss re turn precautions and follow-up instructions. She expressed understanding and agreement. Discharge Plan Departure Patient Disposition: Home Clinical Impression: , Rectal bleeding Instructions: DI for Rectal Bleeding Activity Restrictions/Additional Instructions: Your workup here in the emergency department today is very reassuring. Does show that your baby is doing fine. I do recommend that you keep all of your scheduled medical appointments. Contact your primary doctor for a follow-up and return to the emergency department for any new or worsening symptoms. Prescriptions: No Action prenat.vits,shivani,[id number] tablet 1 tab PO DAILY 0RF ondansetron 4 mg tablet,disintegrating 4 mg PO Q6H PRN (Reason: nausea and vomiting) Qty: 20 2RF venlafaxine 37.5 mg capsule,extended release 24hr 37.5 mg PO DAILY Qty: 90 2RF Rx Instructions: Take one 37.5mg capsule in addition to 75mg capsule daily by mouth venlafaxine [Effexor XR] 75 mg capsule,extended release 24hr 75 mg PO QDAY Qty: 90 2RF Rx Instructions: Take one 75mg capsule in addition to 37.5mg capsule by mouth once daily Referrals: Bailee Dave ARNP [Primary Care Provider] -
== END 2021-07-31 20:49 | disposition home or self-care (01) ==
PROVIDERS: Emergency Medicine; Emergency Provider Emergency Medicine; PCP Nurse Practitioner Family; Referring Provider Obstetrics & Gynecology
DX: O26.891 Other specified pregnancy related conditions, first trimester (principal); K62.5 Hemorrhage of anus and rectum; M54.50 Low back pain, unspecified; R10.9 Unspecified abdominal pain; Z3A.13 13 weeks gestation of pregnancy
CPT/HCPCS: 36415; 76801; 76817; 80053; 81003; 81025; 83690; 84702; 85025; 86900; 86901; 99284

== ENCOUNTER → 2021-08-27 08:24 | Outpatient (CLI) | payer OTHER, MEDICAID, SELFPAY ==
[2021-08-30 20:35] LABS: AFP, Serum 32.2 ng/mL (.); Calc Gestational Age Ultrasound (.); Estriol, Free 1.69 ng/mL (.); Inhibin A, Dimeric 183.62 pg/mL (.); Inhibin A, MoM 0.94 (.); Maternal Ethnicity Caucasian (.); Maternal Weight 107 lbs (.); Number of Fetuses No (.); OSBR Risk 1 IN 10000 (.); Results Report (.); Test Results *Screen Negative* (.); hCG, MoM 1.72 (.); hCG, Serum 67124 mIU/mL (.)
== END ==
PROVIDERS: PCP Nurse Practitioner Family; Referring Provider Obstetrics & Gynecology; Visit Provider Obstetrics & Gynecology
DX: Z34.82 Encounter for supervision of other normal pregnancy, second trimester (principal); Z3A.17 17 weeks gestation of pregnancy
CPT/HCPCS: 36415; 82105; 82677; 84702; 86336

== ENCOUNTER → 2021-09-10 12:04 | Outpatient (CLI) | payer OTHER, MEDICAID, SELFPAY ==
--- NOTE | 2021-09-10 12:30 | DI.US.S_ITS ---
PROCEDURE: US OB TRANSVAGINAL INDICATIONS: History of premature cervical shortening OUTSIDE/PRIOR DATING DATA: Last menstrual period (LMP): 04/26/2021. LMP-based estimated date of delivery (YVON): 01/31/2022. First dating scan (date and location): 07/23/2021, [facility]. Estimated date of delivery (YVON) from first dating scan: 01/29/2022 The calculations are made using the ultrasound generated YVON of 01/29/2022. TECHNIQUE: Real-time scanning was performed of the fetus, with image documentation. Endovaginal scanning: Not performed COMPARISON: None. FINDINGS: A single living intrauterine gestation is present. Presentation: Cephalic. Placenta: Placental position is anterior, without previa. Amniotic fluid index: 13.1 cm, normal range is 5-24 cm. Single deepest vertical pocket is 4.0 cm. heart rate: 140 beats per minute. Maternal cervical canal: 3.3 cm long. Normal lower limit is 2.5 cm. No funneling. IMPRESSION: Cervical length is 3.3 cm. Amniotic fluid index is normal. Single live intrauterine gestation. Dictated by: David Nicholson M.D. on 09/10/2021 at 15:24 Approved by: David Nicholson M.D. on 09/10/2021 at 15:26
== END ==
PROVIDERS: PCP Nurse Practitioner Family; Referring Provider Obstetrics & Gynecology; Visit Provider Obstetrics & Gynecology
DX: O09.299 Supervision of pregnancy with other poor reproductive or obstetric history, unspecified trimester (principal); Z87.59 Personal history of other complications of pregnancy, childbirth and the puerperium
CPT/HCPCS: 76817

== ENCOUNTER 2021-10-21 17:23 | Outpatient (CLI) | payer OTHER, MEDICAID, SELFPAY ==
--- NOTE | 2021-10-21 18:06 | P.TNLD_ITS ---
Visit Information Visit Information Date of evaluation: 10/21/21 Primary OB Provider: Tariq Riley On-call OB Provider: Sienna Corey Reason for Evaluation: Yes non-stress test Comments/Additional reasons for admission: This patient is a 25yo @ 26 weeks gestation with a known shortened cervix. Per records, patient had 3.3cm cervix initially, 2.6cm three weeks ago, 2.4cm one week ago. No bleeding or LOF, had contractions at home as often as 5xhr but now resolved and feeling well. No UTI symptoms. Had these symptoms in prior , delivered at term with 3 hr 2nd stage and VAVD. Vital Signs Vital Signs: S [facility] Medical History Encounter for wellness examination in adult (12/04/20) No significant medical problems Surgical History Aneurysm of unspecified site Status post tonsillectomy and adenoidectomy Family History Grandfather Age: 76 Cancer Heart disease Hypertension High cholesterol Grandmother Age: 75 Cancer Hypertension High cholesterol Mother Age: 49 High cholesterol Kidney stones Cancer Grandfather Age: 80 Diabetes mellitus Heart disease Hypertension High cholesterol Grandmother Age: 78 Cancer High cholesterol Social History marital status: unmarried,living together number of children: 1 household members: significant other and children lives independently: Yes caregiver/support person: Yes housing: house pets and animals: Yes (Cat - aware of litter and Toxo, Dog) education level: college occupational status: employed current occupational exposures/hazards: Yes (Chemicals, cat scratches, 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) Previous occupational history: [employer] travel history: over 6 months ago seatbelt use: always water heater temp set < 120 deg: Yes working smoke detector in home: Yes fire extinguisher in home: No carbon monox detector in home: Yes firearms in home: Yes (In safe in locked room) firearms unloaded and locked: Yes do you feel safe at home: Yes Smoking Status: Never smoker second hand exposure: No alcohol intake: never substance use type: does not use during the past year weight has: remained stable well-balanced diet: daily or most days daily servings fruits/ve or more times/day caffeine: Yes (Small amout discusse 200 mg) Type(s) of exercise: walking frequency: 1-2 times per week Evaluation Evaluation Baseline heart rate: 135 Variability: Average (6-10) monitor accelerations: Present (10x10) Monitor Decelerations: Absent Status: Category l Comments: no contractions Diagnosis, Plan/Disposition Plan/Disposition Plan: UA sent. No contractions on toco. Patient reassured, precautions discussed. Patient lives in [place] within minutes of hospital, to return if symptoms recur. OB Disposition: home
[2021-10-21 18:50] LABS: Appearance Urine UA CLEAR; Bilirubin Urine UA NEGATIVE (NEGATIVE); Color Urine UA YELLOW; Glucose Urine UA TRACE g/dL (Negative); Ketones Urine UA TRACE (NEGATIVE); Leukocyte Esterase Urine UA NEGATIVE (NEGATIVE); Nitrite Urine UA NEGATIVE (Negative); Occult Blood Urine UA TRACE-LYSED (Negative); Protein Urine UA 1+ (Negative); Specific Gravity Urine UA 1.025 (1.000-1.035); Urobilinogen Urine UA 0.2 E.U./dL (0.2)
== END 2021-10-21 18:05 | disposition home or self-care (01) ==
LOC: OB 10-22 10:41
PROVIDERS: PCP Nurse Practitioner Family; Referring Provider Obstetrics & Gynecology; Visit Provider Obstetrics & Gynecology
DX: O26.872 Cervical shortening, second trimester (principal); Z3A.25 25 weeks gestation of pregnancy
CPT/HCPCS: 59025; 81003; G0378; G0379

== ENCOUNTER 2021-11-02 19:12 | Outpatient (CLI) | payer OTHER, MEDICAID, SELFPAY ==
--- NOTE | 2021-11-02 19:46 | P.TNLD_ITS ---
Visit Information Visit Information Date of evaluation: 11/02/21 Primary OB Provider: Tariq Riley On-call OB Provider: Nataly Ryan Reason for Evaluation: Yes pre-term labor Comments/Additional reasons for admission: 25-year-old at 27 weeks and 1 day who called with concern for contractions in the setting of known shortened cervix. She was seen at [facility] yesterday where cervical length was 1.8 cm. She states she was given a prescription for progesterone but had not started it yet. She called because she was feeling contractions every 2-3 minutes that were not going away. Contractions were not painful necessarily but she was more aware of them than typical. She had contractions with her first starting at 27 or 28 weeks but went on to deliver at 37 weeks. Denied leaking or bleeding and reported good movement. Upon arrival to the center contractions had ceased. Vital Signs Vital Signs: Temperature 36.5? blood pressure 108/62 heart rate 96 PFSH Medical History (Updated 11/03/21 @ 11:09 by Nataly Ryan DO) No significant medical problems Surgical History Aneurysm of unspecified site Status post tonsillectomy and adenoidectomy Family History Grandfather Age: 76 Cancer Heart disease Hypertension High cholesterol Grandmother Age: 75 Cancer Hypertension High cholesterol Mother Age: 49 High cholesterol Kidney stones Cancer Grandfather Age: 80 Diabetes mellitus Heart disease Hypertension High cholesterol Grandmother Age: 78 Cancer High cholesterol Social History marital status: unmarried,living together number of children: 1 household members: significant other and children lives independently: Yes caregiver/support person: Yes housing: house pets and animals: Yes (Cat - aware of litter and Toxo, Dog) education level: college occupational status: employed current occupational exposures/hazards: Yes (Chemicals, cat scratches, 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) Previous occupational history: [employer] travel history: over 6 months ago seatbelt use: always water heater temp set < 120 deg: Yes working smoke detector in home: Yes fire extinguisher in home: No carbon monox detector in home: Yes firearms in home: Yes (In safe in locked room) firearms unloaded and locked: Yes do you feel safe at home: Yes Smoking Status: Never smoker second hand exposure: No alcohol intake: never substance use type: does not use during the past year weight has: remained stable well-balanced diet: daily or most days daily servings fruits/ve or more times/day caffeine: Yes (Small amout discusse 200 mg) Type(s) of exercise: walking frequency: 1-2 times per week Evaluation Evaluation Baseline heart rate: 130 Variability: Moderate (11-25) monitor accelerations: Present Monitor Decelerations: Absent Contraction Frequency (minutes): 0 Category of Tracing: Reactive Diagnosis, Plan/Disposition Final Diagnosis (1) 27 weeks gestation of : Status: Acute (2) History of prior with short cervix, currently : Status: Acute Plan/Disposition Plan: 25-year-old at 27 weeks and 1 day. She is being followed closely by Maternal Medicine for shortened cervix and per patient, cervical length was 1.8 cm yesterday. No records available from [facility] to review. NST was reactive and no contractions noted on the monitor. Patient stated that contractions ceased when she arrived in the center. UA n egative for signs of infection though did have glucose and ketones. Encouraged rest and hydration. Return to center should contractions return. Follow- up as scheduled in clinic with Dr. Riley. OB Disposition: home
[2021-11-02 20:28] LABS: Appearance Urine UA CLEAR; Bilirubin Urine UA NEGATIVE (NEGATIVE); Color Urine UA YELLOW; Glucose Urine UA 1+ g/dL (Negative); Ketones Urine UA TRACE (NEGATIVE); Leukocyte Esterase Urine UA NEGATIVE (NEGATIVE); Nitrite Urine UA NEGATIVE (Negative); Occult Blood Urine UA NEGATIVE (Negative); Protein Urine UA NEGATIVE (Negative); Urobilinogen Urine UA 0.2 E.U./dL (0.2)
[2021-11-02 20:34] LABS: pH Urine UA 5.5 (4.5-8.0)
== END 2021-11-02 20:00 | disposition home or self-care (01) ==
LOC: OB 11-05 06:46
PROVIDERS: PCP Nurse Practitioner Family; Referring Provider Obstetrics & Gynecology; Visit Provider Family Medicine
DX: O26.872 Cervical shortening, second trimester (principal); O47.02 False labor before 37 completed weeks of gestation, second trimester; Z3A.27 27 weeks gestation of pregnancy
CPT/HCPCS: 59025; 81003; G0378; G0379

== ENCOUNTER → 2021-11-15 09:33 | Outpatient (CLI) | payer OTHER, MEDICAID, SELFPAY ==
[2021-11-15 11:18] LABS: Hematocrit 31.2 % (36-46); Hemoglobin 10.8 g/dL (12.0-16.0)
[2021-11-15 11:27] LABS: GTT (PREG) 1 Hour PP 50gm Dose 144 mg/dL (76-139)
== END ==
PROVIDERS: PCP Nurse Practitioner Family; Referring Provider Obstetrics & Gynecology; Visit Provider Obstetrics & Gynecology
DX: Z34.82 Encounter for supervision of other normal pregnancy, second trimester (principal); Z3A.25 25 weeks gestation of pregnancy
CPT/HCPCS: 36415; 82950; 85014; 85018

== ENCOUNTER 2021-11-20 16:49 | Observation (INO) | payer OTHER, MEDICAID, SELFPAY ==
--- NOTE | 2021-11-20 17:31 | DI.US.S_ITS ---
PROCEDURE: US OB TRANSVAGINAL INDICATIONS: cervical length OUTSIDE/PRIOR DATING DATA: Last menstrual period (LMP): 04/26/2021. LMP-based estimated date of delivery (YVON): 01/31/2022. First dating scan (date and location): 07/23/2021 at . Estimated date of delivery (YVON) from first dating scan: 01/29/2022. The calculations are made using the ultrasound YVON of 01/29/2022. TECHNIQUE: Real-time scanning was performed of the fetus, with image documentation. Endovaginal scanning: Not performed COMPARISON: [facility], , OB TRANSVAGINAL, 09/10/2021, 12:34. FINDINGS: A single living intrauterine gestation is present. Presentation: Cephalic. Placenta: Placental position is anterior, without previa. Amniotic fluid index: 16 cm, normal range is 5-24 cm. Single deepest vertical pocket is 5.0 cm. heart rate: 153 beats per minute. Maternal cervical canal: 1.7 cm long. Normal lower limit is 2.5 cm. Clinically estimated gestational age: 30 weeks 0 days IMPRESSION: 1. A single living intrauterine gestation. 2. Normal INO. 3. Shortening of cervix measuring 1.7 cm in length. Dictated by: Jorge Morin M.D. on 11/20/2021 at 18:54 Approved by: Jorge Morin M.D. on 11/20/2021 at 18:57
[2021-11-20 18:48] LABS: Fetal Fibronectin Negative
[2021-11-20 19:14] LABS: Appearance Urine UA CLEAR; Bilirubin Urine UA NEGATIVE (NEGATIVE); Color Urine UA YELLOW; Glucose Urine UA NEGATIVE (Negative); Ketones Urine UA 2+ (NEGATIVE); Leukocyte Esterase Urine UA NEGATIVE (NEGATIVE); Nitrite Urine UA NEGATIVE (Negative); Occult Blood Urine UA NEGATIVE (Negative); Protein Urine UA TRACE (Negative); Urobilinogen Urine UA 0.2 E.U./dL (0.2)
[2021-11-20] MEDS: NIFEdipine 10 MG CAPSULE PO ×4 (19:24→20:29)
[2021-11-20] MEDS: LACTATED RINGERS 1,000 ML 1000 ML IV (19:24)
[2021-11-20 19:31] LABS: Bacteria Urine Few (2-10); RBC Urine None Seen (0-5/HPF); Squamous Epithelial Cell Urine 1-5 /HPF (0-5/HPF); WBC Urine 1-5/HPF (0-5/HPF)
[2021-11-20 19:32] LABS: Culture Indicated Urine Specimen Cultured; Mucus Urine 1+ (Negative)
--- NOTE | 2021-11-20 20:11 | PM.OBTRLD ---
Visit Information Visit Information Date of evaluation: 11/20/21 Primary OB Provider: Tariq Riley On-call OB Provider: Tariq Riley Comments/Additional reasons for admission: Heaven is a 26-year-old with an YVON of 01/31/2022 who presents now 29 weeks 5 days gestational age with increased pelvic pressure and cramping since early on the morning of 11/19/2021. Since then her cramping has become more intense and the pressure also more intense although she denies bleeding, leakage of fluid per vagina, or change in vaginal discharge. She presents now for evaluation with a history of premature shortening of the cervix with previous following early consultation with [facility] MFM for her prior OB history. She denies any significant bleeding, leakage of fluid per vagina, or vaginal discharge change. Most recent cervical length at [facility] was 1.8 cm and today her ultrasound shows: PROCEDURE:? US OB TRANSVAGINAL ? INDICATIONS:? cervical length ? OUTSIDE/PRIOR DATING DATA:? Last menstrual period (LMP):? 04/26/2021.? LMP-based estimated date of delivery (YVON):? 01/31/2022.? First dating scan (date and location):? 07/23/2021 at .? Estimated date of delivery (YVON) from first dating scan:? 01/29/2022. The calculations are made using the ultrasound YVON of 01/29/2022.? ? TECHNIQUE: Real-time scanning was performed of the fetus, with image documentation.? Endovaginal scanning:? Not performed ? COMPARISON:? [facility], , OB TRANSVAGINAL, 09/10/2021, 12:34. ? FINDINGS:? A single living intrauterine gestation is present.? Presentation:? Cephalic.? Placenta:? Placental position is anterior, without previa.? ? Amniotic fluid index:? 16 cm, normal range is 5-24 cm. Single deepest vertical pocket is 5.0 cm.? ? heart rate:? 153 beats per minute.? Maternal cervical canal:? 1.7 cm long.? Normal lower limit is 2.5 cm.? Clinically estimated gestational age:? 30 weeks 0 days? ? IMPRESSION:? ? 1. A single living intrauterine gestation. 2. Normal INO. 3. Shortening of cervix measuring 1.7 cm in length. [facility], [facility] Medical History No significant medical problems Surgical History Aneurysm of unspecified site Status post tonsillectomy and adenoidectomy Family History Grandfather Age: 76 Cancer Heart disease Hypertension High cholesterol Grandmother Age: 75 Cancer Hypertension High cholesterol Mother Age: 49 High cholesterol Kidney stones Cancer Grandfather Age: 80 Diabetes mellitus Heart disease Hypertension High cholesterol Grandmother Age: 78 Cancer High cholesterol Social History marital status: unmarried,living together number of children: 1 household members: significant other and children lives independently: Yes caregiver/support person: Yes housing: house pets and animals: Yes (Cat - aware of litter and Toxo, Dog) education level: college occupational status: employed current occupational exposures/hazards: Yes (Chemicals, cat scratches, 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) Previous occupational history: Is [employer] travel history: over 6 months ago seatbelt use: always water heater temp set < 120 deg: Yes working smoke detector in home: Yes fire extinguisher in home: No carbon monox detector in home: Yes firearms in home: Yes (In safe in locked room) firearms unloaded and locked: Yes do you feel safe at home: Yes Smoking Status: Never smoker second hand exposure: No alcohol intake: never substance use type: does not use during the past year weight has: remained stable well-balanced diet: daily or most days daily servings fruits/ve or more times/day caffeine: Yes (Small amout discusse 200 mg) Type(s) of exercise: walking frequency: 1-2 times per week Review of Systems Review of Systems Narrative: Problem-specific ROS positives included with HPI Exam Const General: cooperative and well developed Nutritional Appearance: thin Orientation: alert and oriented x3 Objective Labs Labs: Laboratory Results - last 24 hr 11/20/21 11/20/21 16:40 17:45 Urine Color Yellow Urine Appearance Clear Urine pH 6.0 Ur Specific [place] 1.020 Urine Protein Trace H Urine Glucose (UA) Negative Urine Ketones 2+ H Urine Occult Blood Negative Urine Nitrate Negative Urine Bilirubin Negative Urine Urobilinogen 0.2 Ur Leukocyte Esterase Negative Urine RBC None seen Urine WBC 1-5/hpf Ur Squamous Epith Cells 1-5 /hpf Urine Bacteria Few (2-10) H Urine Mucus 1+ H Ur Culture Indicated? Specimen cultured Fibronectin Negative Evaluation Evaluation Baseline heart rate: 150 Variability: Average (6-10) monitor accelerations: Present Monitor Decelerations: Absent Contraction Frequency (minutes): 3 Uterine Contraction Intensity: Mild Category of Tracing: Reactive Status: Category l Cervical dilation (cm): 0 Cervical effacement (%): 80 station: -3 Diagnosis, Plan/Disposition Plan/Disposition Plan: ASSESSMENT 1. Intrauterine gestation, Tran, 29+ 5 weeks gestational age 2. Premature cervical shortening (1.7cm) 3. Uterine irritability 4. Negative fibronectin PLAN 1. IV hydration and p.o. nifedipine to reduce uterine irritability. 2. If irritability does not respond to nifedipine p.o., will initiate IV magnesium sulfate and consider IM betamethasone. - Uterine irritability has not subsided after 4 doses of p.o. nifedipine and patient initiated on IV magnesium sulfate 4 g bolus and 2 g continuous infusion. - If uterine irritability does not promptly subside with IV MgSO4, will consult [facility] regarding possible transfer and give 1st dose of IM betamethasone if recommended. - Uterine irritability has not subsided with MgSO4 + Nifedipine 30 mg ER and contractions, mild-moderate intensity continue q 3 minutes; Cervix 80%/Closed/-3/anterior/soft. [facility] consult to [facility] via [employer] initiated 2229. - 11/20/2021, 234: Case reviewed with Dr. Ofe Guerrero, [facility] who agrees to accept patient in transfer with preferred arrival time there @ 0400; will administer 1st dose of betamethasone 12 mg IM prior to transfer. OB Disposition: tertiary care transfer
[2021-11-20] MEDS: ACETAMINOPHEN 325 MG TABLET 975 MG PO (21:23)
[2021-11-20] MEDS: MAGNESIUM SULFATE 4 GM/100 ML PIGGYBACK IV (21:24)
[2021-11-20] MEDS: NIFEdipine 30 MG TAB ER PO (21:47)
[2021-11-20] MEDS: MAGNESIUM SULFATE 20 GM/500 ML IV.SOLN IV (22:21)
[2021-11-20 23:46] LABS: Strep Grp B PCR NEG for Grp B Strep
[2021-11-20] MEDS: BETAMETHASONE 30 MG/5 ML MDV 12 MG IM (23:56)
[2021-11-21 00:46] LABS: COVID19 -Nasal RAPID Negative (Negative)
== END 2021-11-21 01:50 | disposition short-term general hospital (02) ==
PROVIDERS: Admitting Provider Obstetrics & Gynecology; PCP Nurse Practitioner Family; Referring Provider Obstetrics & Gynecology; Visit Provider Obstetrics & Gynecology
DX: O26.873 Cervical shortening, third trimester (principal); O47.03 False labor before 37 completed weeks of gestation, third trimester; Z3A.29 29 weeks gestation of pregnancy; Z20.822 Contact with and (suspected) exposure to COVID-19
CPT/HCPCS: 59025; 76815; 76817; 81001; 82731; 87081; 87086; 87635; 87653; C9803; G0378; G0379; J0702; J3475

== ENCOUNTER 2021-12-05 18:55 | Outpatient (CLI) | payer OTHER, MEDICAID, SELFPAY ==
--- NOTE | 2021-12-05 19:51 | P.TNLD_ITS ---
Visit Information Visit Information Date of evaluation: 12/05/21 Primary OB Provider: Tariq Riley On-call OB Provider: Nataly Ryan Reason for Evaluation: Yes pre-term labor Comments/Additional reasons for admission: 26-year-old at 32 weeks gestation with known shortened cervix and recent admission at the [facility] for pre term labor coming in with complaints of regular contractions. Earlier in the day she was having mild contractions every 2-3 minutes. Prior to arrival they were every 3-5 minutes and more noticeable. She has been resting as instructed but states she probably has not had enough water. Denies leaking or bleeding and reports good movement. She rates the contractions 3/10. Vital Signs Vital Signs: T 36.1 BP 113/69 P 101 PFSH Medical History No significant medical problems Surgical History Aneurysm of unspecified site Status post tonsillectomy and adenoidectomy Family History Grandfather Age: 76 Cancer Heart disease Hypertension High cholesterol Grandmother Age: 75 Cancer Hypertension High cholesterol Mother Age: 49 High cholesterol Kidney stones Cancer Grandfather Age: 80 Diabetes mellitus Heart disease Hypertension High cholesterol Grandmother Age: 78 Cancer High cholesterol Social History marital status: unmarried,living together number of children: 1 household members: significant other and children lives independently: Yes caregiver/support person: Yes housing: house pets and animals: Yes (Cat - aware of litter and Toxo, Dog) education level: college occupational status: employed current occupational exposures/hazards: Yes (Chemicals, cat scratches, 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) Previous occupational history: Is [employer] travel history: over 6 months ago seatbelt use: always water heater temp set < 120 deg: Yes working smoke detector in home: Yes fire extinguisher in home: No carbon monox detector in home: Yes firearms in home: Yes (In safe in locked room) firearms unloaded and locked: Yes do you feel safe at home: Yes Smoking Status: Never smoker second hand exposure: No alcohol intake: never substance use type: does not use during the past year weight has: remained stable well-balanced diet: daily or most days daily servings fruits/ve or more times/day caffeine: Yes (Small amout discusse 200 mg) Type(s) of exercise: walking frequency: 1-2 times per week Evaluation Evaluation Baseline heart rate: 135 Variability: Moderate (11-25) monitor accelerations: Present Monitor Decelerations: Absent Uterine Contraction Intensity: Mild Category of Tracing: Reactive Diagnosis, Plan/Disposition Final Diagnosis (1) 32 weeks gestation of : Status: Acute Plan/Disposition Plan: 26-year-old at 32 weeks gestation with recent admission for labor rule out at the [facility] also with known shortened cervix. Reviewed records from her admission at at the beginning of November. She received betamethasone x2, contractions ceased after magnesium sulfate and did not return over the following 48 hours. Upon arrival to the center she had 1 short contraction on the monitor. She was monitored for over an hour with some uterine irritability though no regular contractions and subjective improvement per patient. NST reactive. She is scheduled in clinic tomorrow. OB Disposition: home
== END 2021-12-05 20:30 | disposition home or self-care (01) ==
LOC: LABOR 19:08 → OB 12-10 07:42
PROVIDERS: PCP Nurse Practitioner Family; Referring Provider Obstetrics & Gynecology; Visit Provider Obstetrics & Gynecology
DX: O47.03 False labor before 37 completed weeks of gestation, third trimester (principal); O26.873 Cervical shortening, third trimester; Z3A.32 32 weeks gestation of pregnancy
CPT/HCPCS: 59025; G0378; G0379

== ENCOUNTER 2021-12-10 11:00 | Outpatient (CLI) | payer OTHER, MEDICAID, SELFPAY ==
--- NOTE | 2021-12-10 11:57 | PM.OBTRLD ---
Visit Information Visit Information Date of evaluation: 12/10/21 Primary OB Provider: Tariq Riley On-call OB Provider: Laura Aldridge Comments/Additional reasons for admission: Pt is a 26yo at 32w4d with complicated by shortened cervix here due to increased watery discharge. The pt reports that she has had increased discharge for the past several hours. It is watery, without consistency. No vaginal bleeding. She has been having mild cramping type contractions intermittently, but no worse than in the past. She denies any gushes of fluid. She is feeling her baby move regularly. [facility] Medical History No significant medical problems Surgical History Aneurysm of unspecified site Status post tonsillectomy and adenoidectomy Family History Grandfather Age: 76 Cancer Heart disease Hypertension High cholesterol Grandmother Age: 75 Cancer Hypertension High cholesterol Mother Age: 49 High cholesterol Kidney stones Cancer Grandfather Age: 80 Diabetes mellitus Heart disease Hypertension High cholesterol Grandmother Age: 78 Cancer High cholesterol Social History marital status: unmarried,living together number of children: 1 household members: significant other and children lives independently: Yes caregiver/support person: Yes housing: house pets and animals: Yes (Cat - aware of litter and Toxo, Dog) education level: college occupational status: employed current occupational exposures/hazards: Yes (Chemicals, cat scratches, 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) 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 seatbelt use: always water heater temp set < 120 deg: Yes working smoke detector in home: Yes fire extinguisher in home: No carbon monox detector in home: Yes firearms in home: Yes (In safe in locked room) firearms unloaded and locked: Yes do you feel safe at home: Yes Smoking Status: Never smoker second hand exposure: No alcohol intake: never substance use type: does not use during the past year weight has: remained stable well-balanced diet: daily or most days daily servings fruits/ve or more times/day caffeine: Yes (Small amout discusse 200 mg) Type(s) of exercise: walking frequency: 1-2 times per week Evaluation Evaluation Baseline heart rate: 130 Variability: Moderate (11-25) monitor accelerations: Present Monitor Decelerations: Absent Category of Tracing: Reactive Non-invasive Membranes Rupture Test: negative Diagnosis, Plan/Disposition Final Diagnosis (1) Short cervix affecting : Status: Acute (2) 32 weeks gestation of : Status: Acute Plan/Disposition Plan: 26yo at 32w4d here due to increased vaginal discharge. Amniosure negative, no evidence ROM. Pt was having mild intermittent contractions, confirmed on monitoring. NST reactive. Cervical length obtained again, noted to be 1.2. Consulted with Dr Riley, pts primary OB, who recommended continued strict bed rest, return precautions discussed again. Pt expressed understanding, and is safe for d/c home. OB Disposition: home
--- NOTE | 2021-12-10 11:58 | DI.US.S_ITS ---
PROCEDURE: US OB TRANSVAGINAL INDICATIONS: cervical length OUTSIDE/PRIOR DATING DATA: Last menstrual period (LMP): April 26, 2021. LMP-based estimated date of delivery (YVON): January 31, 2022. First dating scan (date ): July 23, 2021. Estimated date of delivery (YVON) from first dating scan: January 29, 2022. TECHNIQUE: Real-time scanning was performed of the fetus, with image documentation. COMPARISON: [facility], , OB TRANSVAGINAL, 11/20/2021, 17:49. FINDINGS: A single living intrauterine gestation is present. Presentation: Vertex Placenta: Placental position is anterior, without previa. Amniotic fluid index: 14.5 cm, normal range is 5-24 cm. Single deepest vertical pocket is 4.6 cm. heart rate: 143 beats per minute. Maternal cervical canal: 1.2 cm long with funneling. Normal lower limit is 2.5 cm. IMPRESSION: Shortened cervix with funneling as detailed above. Dictated by: Darryl Hassan M.D. on 12/10/2021 at 13:10 Approved by: Darryl Hassan M.D. on 12/10/2021 at 13:12
== END 2021-12-10 12:42 | disposition home or self-care (01) ==
LOC: LABOR 11:38 → OB 12-12 07:26
PROVIDERS: PCP Nurse Practitioner Family; Referring Provider Family Medicine; Visit Provider Family Medicine
DX: Z03.71 Encounter for suspected problem with amniotic cavity and membrane ruled out (principal); O47.03 False labor before 37 completed weeks of gestation, third trimester; O26.873 Cervical shortening, third trimester; Z3A.32 32 weeks gestation of pregnancy
CPT/HCPCS: 59025; 76817; 84112; G0378; G0379

== ENCOUNTER 2022-01-08 11:50 | Outpatient (CLI) | payer OTHER, MEDICAID, SELFPAY | END 2022-01-08 12:20 | disposition home or self-care (01) | LOC: OB 01-09 13:43 | PROVIDERS: PCP Nurse Practitioner Family; Referring Provider Family Medicine; Visit Provider Family Medicine | DX: O36.8130 Decreased fetal movements, third trimester, not applicable or unspecified (principal); Z3A.36 36 weeks gestation of pregnancy | CPT/HCPCS: 59025; 87653; G0378; G0379 ==

== ENCOUNTER → 2022-01-08 12:15 | Outpatient (CLI) | payer OTHER, MEDICAID, SELFPAY ==
[2022-01-09 10:48] LABS: Strep Grp B PCR NEG for Grp B Strep
== END ==
PROVIDERS: PCP Nurse Practitioner Family; Visit Provider Obstetrics & Gynecology
DX: Z34.83 Encounter for supervision of other normal pregnancy, third trimester (principal); Z3A.36 36 weeks gestation of pregnancy
CPT/HCPCS: 87653

== ENCOUNTER 2022-01-16 15:11 | Outpatient (CLI) | payer OTHER, MEDICAID, SELFPAY ==
--- NOTE | 2022-01-16 15:30 | DI.US.S_ITS ---
PROCEDURE: US OB BIOPHYSICAL PROFILE INDICATIONS: Decreased movement OUTSIDE/PRIOR DATING DATA: Last menstrual period (LMP): 04/26/2021. LMP-based estimated date of delivery (YVON): 01/31/2022. First dating scan (date and location): 07/23/2021. Estimated date of delivery (YVON) from first dating scan: 01/29/2022. TECHNIQUE: Real-time scanning was performed of the fetus, with image documentation. Biophysical profile was also obtained. COMPARISON: [facility], OB TRANSVAGINAL, 12/10/2021, 12:14. [facility], US OB >= 14 WEEKS FETUS, 12/12/2021, 11:40. FINDINGS: General: A single living intrauterine gestation is present. Presentation: Cephalic. Placenta: Placental position is anterior, without previa. Amniotic fluid index: 11.8 cm, normal range is 5-24 cm. Single deepest vertical pocket is 7.5 cm. Amniotic fluid debris appears more prominent. heart rate: 144 beats per minute. Maternal cervical canal: Not seen. Gestational age based on prior datin weeks 1 day Biophysical profile: Tone: 2 points. Movement: 2 points. Respiration: 2 points. Largest pocket of fluid: 2 points. IMPRESSION: 1. Tran living intrauterine at 38 weeks 1 day based on prior dating. 2. Normal placenta and INO. There is debris within the amniotic fluid. 3. Normal biophysical profile score 8/8. We strive to produce accurate, complete, and clear reports of imaging services. To assist us in improving patient care, this report was composed using standard report templates and voice recognition software. Therefore, it may contain abnormal punctuation, insertions and/or omissions. Occasional wrong-word or sound-alike substitutions may occur. Though we review the report and make efforts to correct it, we do recommend that the report be read carefully in proper context to recognize any text inaccuracies. Dictated by: Taj Shanks M.D. on 01/16/2022 at 16:23 Approved by: Taj Shanks M.D. on 01/16/2022 at 16:27
--- NOTE | 2022-01-17 13:13 | P.TNLD_ITS ---
Visit Information Visit Information Date of evaluation: 01/16/22 Primary OB Provider: Tariq Riley Reason for Evaluation: Yes non-stress test Comments/Additional reasons for admission: Decreased movement; infant now active on BC. Vital Signs Vital Signs: 125/81, 83, 36.5C PFSH Medical History No significant medical problems Surgical History Aneurysm of unspecified site Status post tonsillectomy and adenoidectomy Family History Grandfather Age: 76 Cancer Heart disease Hypertension High cholesterol Grandmother Age: 75 Cancer Hypertension High cholesterol Mother Age: 49 High cholesterol Kidney stones Cancer Grandfather Age: 80 Diabetes mellitus Heart disease Hypertension High cholesterol Grandmother Age: 78 Cancer High cholesterol Social History marital status: unmarried,living together number of children: 1 household members: significant other and children lives independently: Yes caregiver/support person: Yes housing: house pets and animals: Yes (Cat - aware of litter and Toxo, Dog) education level: college occupational status: employed current occupational exposures/hazards: Yes (Chemicals, cat scratches, 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) 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 6 months ago seatbelt use: always water heater temp set < 120 deg: Yes working smoke detector in home: Yes fire extinguisher in home: No carbon monox detector in home: Yes firearms in home: Yes (In safe in locked room) firearms unloaded and locked: Yes do you feel safe at home: Yes Smoking Status: Never smoker second hand exposure: No alcohol intake: never substance use type: does not use during the past year weight has: remained stable well-balanced diet: daily or most days daily servings fruits/ve or more times/day caffeine: Yes (Small amout discusse 200 mg) Type(s) of exercise: walking frequency: 1-2 times per week Review of Systems Review of Systems Narrative: Problem-specific ROS positives included in HPI Evaluation Evaluation Baseline heart rate: 140 Variability: Moderate (11-25) monitor accelerations: Present Monitor Decelerations: Absent Category of Tracing: Reactive Status: Category l Diagnosis, Plan/Disposition Final Diagnosis (1) Short cervix affecting : Status: Acute (2) History of prior with short cervix, currently : Status: Acute (3) : Status: Acute (4) Decreased movement affecting management of mother, antepartum: Status: Acute Plan/Disposition Plan: Testing today is reassuring, patient will continue to keep close observation on movement and report any significant change. Follow-up scheduled for 01/22/2022 and anticipate possible membrane stripping or induction at 39 weeks. OB Disposition: home
== END 2022-01-16 16:20 | disposition home or self-care (01) ==
LOC: OB 01-22 13:57
PROVIDERS: PCP Nurse Practitioner Family; Referring Provider Obstetrics & Gynecology; Visit Provider Obstetrics & Gynecology
DX: O36.8130 Decreased fetal movements, third trimester, not applicable or unspecified (principal); O26.873 Cervical shortening, third trimester; Z3A.37 37 weeks gestation of pregnancy
CPT/HCPCS: 59025; 76819; G0378; G0379

== ENCOUNTER 2022-01-22 09:35 | Outpatient (CLI) | payer OTHER, MEDICAID, SELFPAY ==
--- NOTE | 2022-01-22 10:14 | P.TNLD_ITS ---
Visit Information Visit Information Date of evaluation: 01/22/22 Primary OB Provider: Tariq Riley Reason for Evaluation: Yes non-stress test Comments/Additional reasons for admission: Decreased movement Vital Signs Vital Signs: 125/76, P=90, 36.1C [facility] Medical History No significant medical problems Surgical History Aneurysm of unspecified site Status post tonsillectomy and adenoidectomy Family History Grandfather Age: 76 Cancer Heart disease Hypertension High cholesterol Grandmother Age: 75 Cancer Hypertension High cholesterol Mother Age: 49 High cholesterol Kidney stones Cancer Grandfather Age: 80 Diabetes mellitus Heart disease Hypertension High cholesterol Grandmother Age: 78 Cancer High cholesterol Social History marital status: unmarried,living together number of children: 1 household members: significant other and children lives independently: Yes caregiver/support person: Yes housing: house pets and animals: Yes (Cat - aware of litter and Toxo, Dog) education level: college occupational status: employed current occupational exposures/hazards: Yes (Chemicals, cat scratches, 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) 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: over 6 months ago seatbelt use: always water heater temp set < 120 deg: Yes working smoke detector in home: Yes fire extinguisher in home: No carbon monox detector in home: Yes firearms in home: Yes (In safe in locked room) firearms unloaded and locked: Yes do you feel safe at home: Yes Smoking Status: Never smoker second hand exposure: No alcohol intake: never substance use type: does not use during the past year weight has: remained stable well-balanced diet: daily or most days daily servings fruits/ve or more times/day caffeine: Yes (Small amout discusse 200 mg) Type(s) of exercise: walking frequency: 1-2 times per week Review of Systems Review of Systems Narrative: Problem-specific ROS positives included in HPI Exam HENMT Head: normal to inspection, normocephalic and atraumatic Eyes General: appearance normal, both eyes and all related structures Resp Effort & Inspection: normal respiratory effort and able to speak in complete sentences GI Inspection: normal to inspection Uterus Location (Fundal Height): 36 Presentation: vertex Estimated Weight (lbs): 7 Extrem Right lower extremity: normal to inspection Evaluation Evaluation Baseline heart rate: 130 Variability: Moderate (11-25) monitor accelerations: Present Monitor Decelerations: Absent Contraction Frequency (minutes): 5 Uterine Contraction Intensity: Mild Category of Tracing: Reactive Status: Category l Cervical dilation (cm): 3 Cervical effacement (%): 90 station: -1 Diagnosis, Plan/Disposition Final Diagnosis (1) Decreased movement affecting management of mother, antepartum: Status: Acute (2) : Status: Acute Plan/Disposition Plan: With her Alves score of 11 and ongoing uterine irritability, anticipate delivery within the next few days. Labor precautions reviewed. Follow-up will be in 1 week if undelivered otherwise on an as-needed basis. OB Disposition: home
== END 2022-01-22 10:17 | disposition home or self-care (01) ==
LOC: OB 01-24 11:33
PROVIDERS: PCP Nurse Practitioner Family; Referring Provider Obstetrics & Gynecology; Visit Provider Obstetrics & Gynecology
DX: O36.8130 Decreased fetal movements, third trimester, not applicable or unspecified (principal); Z3A.38 38 weeks gestation of pregnancy
CPT/HCPCS: 59025; G0378; G0379

== ENCOUNTER 2022-01-23 18:03 | Inpatient (IN) | payer OTHER, MEDICAID, SELFPAY ==
[2022-01-23] MEDS: LACTATED RINGERS 1,000 ML 100 ML IV ×3 (19:05→22:58)
[2022-01-23 19:16] LABS: Add Manual Diff / Slide Review NO; Basophils Absolute Auto 0 /uL (0-100); Basophils Percent Auto 0.7 % (0-2); Eosinophils Absolute Auto 0 /uL (0-450); Eosinophils Percent Auto 0.3 % (2-4); Hematocrit 29.5 % (36-46); Hemoglobin 9.8 g/dL (12.0-16.0); Lymphocytes Absolute Auto 1600 /uL (1100-4500); Lymphocytes Percent Auto 22.2 % (25-40); Mean Corpuscular HGB Conc 33.3 % (30-36); Mean Corpuscular Volume 78.1 fL (80-100); Monocytes Absolute Auto 400 /uL (0-900); Monocytes Percent Auto 6.1 % (3-14); Neutrophils Absolute Auto 5000 /uL (1500-7000); Neutrophils Percent Auto 70.7 % (50-75); Platelet Count 221 X10^3/uL (150-400); Red Blood Cell Count 3.77 X10^6/uL (4.0-5.2); Red Cell Distribution Width 14.8 % (11.6-14.8); White Blood Cell Count 7.1 X10^3/uL (4.5-11.0)
[2022-01-23 19:37] LABS: COVID19 -Nasal RAPID Negative (Negative)
[2022-01-23 20:21] VITALS: BP 131/80
[2022-01-23] MEDS: FENT 2MCG/ML BUPIV 0.125% EPI 200 MCG/100 ML PLAST..BAG 8.1 MCG EPIDURAL (20:30)
--- NOTE | 2022-01-23 21:13 | PM.AN.REGBLK ---
Regional Block Pre-procedure Procedure: Continuous Lumbar Epidural for L&D Attending OB provider: Tariq Riley PMH/ROS narrative: term uncomplicated gestation FHT reassuring, already at 8 cm upon arrival, very uncomfortable. Had epidural with previous and requests same. ASA Class: II Labs: Hct 29.5 % (36-46) L 01/23/22 19:00 Plt Count 221 X10^3/uL (150-400) 01/23/22 19:00 Medications: Current Medications Generic Name Dose Route Start Last Admin Trade Name Freq PRN Reason Stop Dose Admin Carboprost Tromethamine 250 mcg 01/23/22 18:48 Carboprost 250 Mcg/Ml Ampul IM Q90M PRN Bleeding Fentanyl 50 mcg 01/23/22 18:52 Fentanyl 100 Mcg/2 Ml Inj IV Q1H PRN Pain, Moderate (4-6) Lactated Ringer's 1,000 mls @ 100 mls/hr 01/23/22 19:00 01/23/22 20:20 Lactated Ringers IV 100 mls/hr CONT FRANC Administration Oxytocin/Lactated Ringer's 30 unit in 500 mls @ 200 mls/hr 01/23/22 18:48 Oxytocin Premix IV CONT PRN Bleeding Protocol Tranexamic Acid 1,000 mg/ 100 mls @ 200 mls/hr 01/23/22 18:48 Sodium Chloride IV NOW PRN Bleeding Methylergonovine Maleate 0.2 mg 01/23/22 18:48 Methylergonovine 0.2 Mg Tablet PO Q6HR PRN Heavy Bleeding Methylergonovine Maleate 0.2 mg 01/23/22 18:48 Methylergonovine 0.2 Mg/Ml Vial IM NOW PRN Bleeding Misoprostol 800 mcg 01/23/22 18:48 Misoprostol 200 Mcg Tablet NJ NOW PRN Bleeding Misoprostol 1,000 mcg 01/23/22 18:48 Misoprostol 200 Mcg Tablet NJ NOW PRN Bleeding Misoprostol 400 mcg 01/23/22 18:48 Misoprostol 200 Mcg Tablet SL NOW PRN Bleeding Naloxone HCl 0.2 mg 01/23/22 18:52 Naloxone 0.4 Mg/Ml Vial IV Q2MIN PRN Opiate Reversal Ondansetron HCl 4 mg 01/23/22 18:52 Ondansetron 4 Mg/2 Ml Inj IV Q4HR PRN Nausea And Vomiting Oxytocin 10 unit 01/23/22 18:48 Oxytocin 10 Unit/Ml Vial IM NOW PRN Bleeding Allergies: Allergies Allergy/AdvReac Type Severity Reaction Status Date / Time clonidine [CLONIDINE] Allergy Mild RASH Verified 11/29/21 14:36 Procedure Insertion date: 01/23/22 Insertion time: 19:18 Prep/Local: betadine x3 and 1% lidocaine Interspace: L 3-4 Patient position: sitting Needle: 18 gauge Vahe Loss of resistance with: saline KIRAN at (cm): 6 Catheter placed at SKIN (cm): 11 Initial Medications TEST DOSE time: 19:55 Infusion INFUSION: 0.125% bupivacaine and with fentanyl 2 mcg/mL Initial rate (mL/hr): 8 Subsequent interventions: CSE placed due to extreme discomfort and rapidly advancing labor. Back has scoliotic curve and the patient is not able to hold still due to pain, so I elected to do a labor spinal first for rapid relief of pain. Needle advancement with 25 Hailee at L 3-4 elicited left paresthesia, recurrent with needle repositioning, so level abandoned. L2-3 midline, easy advancement of hailee needle, csf clear, dose 2.5 mg bupivacaine plus fentanyl 20 mcg given. Rapid pain relief ensued. Unable to advance epidural needle at this level due to narrow interspace, so returned to L 3-4 midline. Easy epidural needle advancement achieved and catheter placed, but heme returned via catheter that does not clear. Pt is comfortable and happy by now and willing to tolerate catheter replacement. New kit opened and back re-prepped and draped. L 4-5 midline, soft KIRAN with NS at 6 cm, catheter advanced easily. Test dose negative. Secured; infusion begun after Fentanyl 80 mcg given per epidural. Post-procedure Anesthesia time START: 19:18 Anesthesia time END: 23:46 Post-procedure Anesthesia Assessment: Yes CV function: HR/BP stable, Yes Resp function: RR/sat/airway adequate, Yes Post-op hydration adequate, Yes Pain control adequate, Yes Nausea & vomiting absent, Yes Temperature > 36 C and Yes Mental status appropriate
--- NOTE | 2022-01-23 23:31 | P.HPOB_ITS ---
OB HPI Date/Time Date of admission: 01/23/22 Date Patient Seen: 01/23/22 Time Patient Seen: 23:31 History of Present Condition Chief complaint: Labor/delivery : 2 Para: 1 Estimated Date of Delivery: 01/31/22 Estimated Gestational Age (weeks): 39+0 Narrative: Heaven Figueroa is a 26 year old YVON 01/31/2022 admitted in active labor now at 39 weeks EGA. Contractions have been building all day and she's passed some bloody mucous but her membranes are intact. PNC has been complicated by prematire cervical shortening and threatened labor for which she was placed on nifedipine until 36 weeks. 1 hr. GDM screen elevated at 144 mg% but unable to perform 3 hr. GDM due to steroid administration at [facility] during an episode of PTL. Daily fasting and PPBS testing at home has been in the normal range. Serial NST's for decreased FM in late 3rd trimester has been reassuring. GBS negative. History of Present care: good care Dating criteria: LMP confirmed by 1st trimester US Ultrasounds: normal 1st trimester US and normal mid trimester US Obstetrical complications: other (Premature cervical shortening, threatened PTL) Medical complications: none and other (Anemia) Preadmission Labs Blood type: A (+) positive -: Antibody screen: negative, GBS status: negative, HBsAG: negative, HIV: negative and RPR/VDLR: negative -: Chlamydia screen: not detected and Gonorrhea screen: not detected -: Rubella: immune and Varicella: immune HCT: 29.5 HCAB: negative PAP: Normal Quad screen: Normal 1 hr GTT: 144 Prior (ies) History: Vacuum extraction after 3 hrs. pushing w/ third degree perineal laceration Evaluation Evaluation Baseline heart rate: 150 Variability: Average (6-10) monitor accelerations: Present Monitor Decelerations: Absent Contraction Frequency (minutes): 3 Uterine Contraction Intensity: Strong/Firm Category of Tracing: Reactive Status: Category l Dilation (cm): 7 Effacement (%): 90 Dilation: >/=5 cm Effacement: >/=80% station: -1 Position of cervix: anterior Consistency: soft Alves score: 12 [facility] Medical History (Updated 01/24/22 @ 00:48 by Tariq Riley MD) Abnormal O'Lui glucose challenge test, antepartum No significant medical problems Surgical History Aneurysm of unspecified site Status post tonsillectomy and adenoidectomy Family History Grandfather Age: 76 Cancer Heart disease Hypertension High cholesterol Grandmother Age: 75 Cancer Hypertension High cholesterol Mother Age: 49 High cholesterol Kidney stones Cancer Grandfather Age: 80 Diabetes mellitus Heart disease Hypertension High cholesterol Grandmother Age: 78 Cancer High cholesterol Social History marital status: unmarried,living together number of children: 1 household members: significant other and children lives independently: Yes caregiver/support person: Yes housing: house pets and animals: Yes (Cat - aware of litter and Toxo, Dog) education level: college occupational status: employed current occupational exposures/hazards: Yes (Chemicals, cat scratches, 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) Previous occupational history: [employer] travel history: over 6 months ago seatbelt use: always water heater temp set < 120 deg: Yes working smoke detector in home: Yes fire extinguisher in home: No carbon monox detector in home: Yes firearms in home: Yes (In safe in locked room) firearms unloaded and locked: Yes do you feel safe at home: Yes Smoking Status: Never smoker second hand exposure: No alcohol intake: never substance use type: does not use during the past year weight has: remained stable well-balanced diet: daily or most days daily servings fruits/ve or more times/day caffeine: Yes (Small amout discusse 200 mg) Type(s) of exercise: walking frequency: 1-2 times per week Meds Home Medications and Allergies Home Medications Medication Instructions Recorded Confirmed Type prenat.vits,shivani,[id number] 1 tab PO DAILY 09/02/18 11/29/21 History ondansetron 4 mg disintegrating 4 mg PO Q6H PRN #20 tab 06/17/21 11/29/21 Rx tablet venlafaxine 37.5 mg 37.5 mg PO DAILY #90 cap 10/08/21 11/29/21 Rx capsule,extended release 24 hr venlafaxine 75 mg capsule,extended 75 mg PO QDAY #90 cap 10/08/21 11/29/21 Rx release 24 hr (Effexor XR) progesterone micronized 100 mg 200 mg VAGINAL DAILY ea 11/12/21 11/29/21 History vaginal insert nifedipine 10 mg capsule 10 mg PO .q20min PRN #30 cap 12/06/21 12/06/21 Rx nifedipine 30 mg tablet,extended See Rx Instructions .ROUTE 12/31/21 Rx release .COMPLEX #30 tab Allergies Allergy/AdvReac Type Severity Reaction Status Date / Time clonidine [CLONIDINE] Allergy Mild RASH Verified 11/29/21 14:36 Review of Systems Review of Systems Narrative: Problem-specific ROS positives included in HPI OB Exam HENMT Head: normal to inspection, normocephalic and atraumatic Eyes General: appearance normal, both eyes and all related structures Resp Effort & Inspection: normal respiratory effort and able to speak in complete sentences Cardio Rate: regular rate Rhythm: regular rhythm Heart Sounds: S1 normal and S2 normal Extremities Lower extremity: Yes normal to inspection GI Inspection: normal to inspection Palpation: Yes soft and Yes no hepatosplenomegaly Uterus Location (Fundal Height): 38 Presentation: vertex Estimated Weight (lbs): 8 Objective Labs Result Diagrams: 01/23/22 19:00 Labs: Laboratory Results - last 24 hr 01/23/22 01/23/22 01/23/22 19:00 19:00 19:03 WBC 7.1 RBC 3.77 L Hgb 9.8 L Hct 29.5 L MCV 78.1 L MCH 26.0 MCHC 33.3 RDW 14.8 Plt Count 221 Neut % (Auto) 70.7 Lymph % (Auto) 22.2 L [place] % (Auto) 6.1 Eos % (Auto) 0.3 L Baso % (Auto) 0.7 Neut # (Auto) 5000 Lymph # (Auto) 1600 [place] # (Auto) 400 Eos # (Auto) 0 Baso # (Auto) 0 SARS-CoV-2 (PCR) Negative Blood Type A Positive Antibody Screen Negative Assessment and Plan Assessment and Plan Assessment and Plan narrative: ASSESSMENT 1. Intrauterine gestation, griffith, 39+0 weeks EGA 2. History of premature cervical shortening 3. History of labor 4. Abnormal O'Lui diabetes screen PLAN 1. Admit for labor 2. Anticipate 3. See orders
--- NOTE | 2022-01-24 01:18 | PM.OBPRVD ---
Events: Labor < 37 wks and Other (Elevated 1 hr. GDM screen) Labor & Delivery Delivery date: 01/23/22 Cervical ripening method: none Induction method: none Delivery monitor: external FHT and external uterine Route of delivery: vacuum extraction Indication for instrumentation: nonreassuring FHR tracing (Deep variables/bradycardia with pushing in 2nd stage) Episiotomy description: None L&D Laceration Description: Perineal - 3rd Degree Delivery repair: vicryl and chromic Estimated blood loss (mL): 300 Anesthesia Type: Epidural Narrative: Patient was permitted to labor down after entering the 2nd stage of labor and once the vertex was at +2, pushing was initiated. Deep variables/bradycardia noted and vacuum extractor applied at +2-3 station RACHEL and with a sigle pull, suction pressure < 600 mmHg, the vertex was brought down to +3 where the vaccum was released and she pushed and delivered the infant spontanously. A loop of cord immediately followed the vertex at delivery. The infant was delivered without shoulder or body dystocia and skin to skin contact was initiated immediately. The was not vigorous however and the cord was clamped and cut after approximately 30 seconds. The infant was transferred to the warmer where NRP initiated with brief PPV applied; normal FHR but initially poor/absent respiratory effort. RT and Peds nuisance animal damage control agent contacted for evaluation and stabilization of the infant. The placenta was delivered with gentle cord traction and found to be intact with 3 vessels. A cord blood sample was obtained for routine labs. A third degree laceration was noted and under ESE anesthesia repair performed with 0 Vicryl suture used for reapproximation of the sphincter/capsule and deep perineal tissues. The vaginal portion of the laceration and the superficial perineal tissues were reapproximated with 2-0 CCGS in the usual manner. The delivery and repair were well tolerated by the mother and the infant was stable if not vigorous throughout the delivery and subsequent NRP support process/evaluation. Baby 1: Infant gender: Male Presentation: vertex Position: Left Occiput Anterior Placenta delivery description: Spontaneous and Expressed Cord Vessel Description: 3 Vessels score (1 min): 6 weight: 9 lb 5.491 oz Plan for aftercare: Routine care
[2022-01-24] MEDS: DERMOPLAST SPRAY 20% 60 ML 1 SPRAY TOP ×2 (04:07→10:04)
[2022-01-24] MEDS: ACETAMINOPHEN 325 MG TABLET 650 MG PO ×2 (04:07→10:03)
[2022-01-24] MEDS: IBUPROFEN 600 MG TABLET PO ×2 (04:08→10:04)
[2022-01-24 04:37] VITALS: TEMP 36.6
[2022-01-24 06:34] LABS: Add Manual Diff / Slide Review NO; Basophils Absolute Auto 0 /uL (0-100); Basophils Percent Auto 0.4 % (0-2); Eosinophils Absolute Auto 0 /uL (0-450); Hematocrit 25.4 % (36-46); Hemoglobin 8.4 g/dL (12.0-16.0); Lymphocytes Absolute Auto 1200 /uL (1100-4500); Lymphocytes Percent Auto 12.2 % (25-40); Mean Corpuscular HGB Conc 33.2 % (30-36); Mean Corpuscular Hemoglobin 25.9 PG (26-34); Mean Corpuscular Volume 78.1 fL (80-100); Monocytes Absolute Auto 600 /uL (0-900); Monocytes Percent Auto 6.1 % (3-14); Neutrophils Absolute Auto 8300 /uL (1500-7000); Neutrophils Percent Auto 81.3 % (50-75); Platelet Count 179 X10^3/uL (150-400); Red Blood Cell Count 3.24 X10^6/uL (4.0-5.2); Red Cell Distribution Width 14.8 % (11.6-14.8); White Blood Cell Count 10.2 X10^3/uL (4.5-11.0)
--- NOTE | 2022-01-24 09:08 | P.DS_ITS ---
Discharge Providers Provider Date of admission: 01/23/22 18:03 Discharge Date: 01/24/22 Primary care physician: HUAN Demarco Consults: 01/23/22 18:54 Consult to Anesthesiology Urgent Comment: Consulting Provider: Tariq Riley Reason for consultation: ESE placement in labor Has provider been notified: No 01/25/22 01:11 Consult to Rn Float Routine Comment: Discharge provider: Tariq Riley MD Summary Hospital Course Date Patient Seen: 01/24/22 Time Patient Seen: 09:08 Diagnoses: Intrauterine gestation, Tran, 39+ 0 weeks gestation, delivered Hospital Course: Heaven was admitted in spontaneous labor at 39+ 0 weeks gestational age on the morning of 01/23/2022 and labored spontaneously with an epidural in place, delivering late on the evening of 01/23/2022 a male infant weighing 9 lb 5 oz delivered by vacuum extraction due to repetitive variable decelerations. Patient sustained a third-degree laceration at the time of delivery which was repaired in the usual manner. Following delivery the patient has done extremely well with prompt return of bowel and bladder function, she is ambulating independently, tolerating regular diet, and her pain is well controlled with oral pain medications. She will be discharged at this time to home in an afebrile normotensive condition after counseling regarding precautionary symptoms, limitations of activity, medications, plans for follow-up which will be in 2 weeks. Patient's has been transferred down to [facility] due to respiratory issues and therefore patient's discharge will be expedited. Medications at discharge will include resumption of all preadmission medications along with oxycodone 5 mg p.o. q.6 hours as needed pain dispense 20, ibuprofen 600 mg p.o. q.6 hours as needed pain dispensed 60, and Colace 200 mg p.o. b.i.d. times 30 days. Peripartum Data Delivery Method: Natural Vaginal (Vacuum assist) Laceration Description: Perineal - 3rd Degree Episiotomy description: None Procedures: Vaginal Obstetrical delivery, vacuum extraction Repair of third-degree perineal laceration Continuous lumbar epidural placement complications: none [place] 1: Gender: Male Disposition of : NICU (Transferred to [facility]) Status at Discharge Cognitive/behavioral status at discharge: oriented Functional status at discharge: independent ambulation Overall status at discharge: patient is progressing back to baseline Time Spent with Patient Time attestation: Total time spent providing and/or coordinating discharge services: Time spent: Less than 30 minutes Objective Labs Result Diagrams: 01/24/22 06:14 Labs: Laboratory Results - last 24 hr 01/23/22 01/23/22 01/23/22 19:00 19:00 19:03 WBC 7.1 RBC 3.77 L Hgb 9.8 L Hct 29.5 L MCV 78.1 L MCH 26.0 MCHC 33.3 RDW 14.8 Plt Count 221 Neut % (Auto) 70.7 Lymph % (Auto) 22.2 L [place] % (Auto) 6.1 Eos % (Auto) 0.3 L Baso % (Auto) 0.7 Neut # (Auto) 5000 Lymph # (Auto) 1600 [place] # (Auto) 400 Eos # (Auto) 0 Baso # (Auto) 0 SARS-CoV-2 (PCR) Negative Blood Type A Positive Antibody Screen Negative 01/24/22 06:14 WBC 10.2 RBC 3.24 L Hgb 8.4 L Hct 25.4 L MCV 78.1 L MCH 25.9 L MCHC 33.2 RDW 14.8 Plt Count 179 Neut % (Auto) 81.3 H Lymph % (Auto) 12.2 L [place] % (Auto) 6.1 Eos % (Auto) 0.0 L Baso % (Auto) 0.4 Neut # (Auto) 8300 H Lymph # (Auto) 1200 [place] # (Auto) 600 Eos # (Auto) 0 Baso # (Auto) 0 SARS-CoV-2 (PCR) Blood Type Antibody Screen Exam Vital Signs (past 8 hours): - 01/24/22 04:37 Temperature 97.8 F Const General: cooperative and comfortable Nutritional Appearance: average body habitus Orientation: alert and oriented x3 HENMT Head: normal to inspection, atraumatic and abrasion Ears: hearing grossly normal bilaterally Face and sinus: face symmetric Eyes General: appearance normal, both eyes and all related structures Conjunctivae: conjunctivae normal Sclera: sclerae normal EOM: EOM intact bilaterally Neck Neck: normal visual inspection Resp Effort & Inspection: normal respiratory effort and able to speak in complete se ntences Auscultation: clear to auscultation bilaterally Cardio Rate: regular rate Rhythm: regular rhythm Heart Sounds: S1 normal, S2 normal and no murmurs GI Inspection: normal to inspection Palpation: soft and no hepatosplenomegaly External Female Exam: ecchymosis (Slight) and other (Slight edema, 3rd degree laceration repair healing nicely) Extrem General: no calf tenderness Psych Appearance: grossly normal Mental Status: mental status grossly normal Speech and Movement: speech and movement normal Mood: congruent mood Affect: normal affect Attitude: cooperative Thought Process: normal Thought Content: normal Judgment: judgment good Discharge Plan Discharge Plan Patient Disposition: Home Provider Discharge Comment: Please review the written instructions you received when you were discharged from the hospital. Your follow-up appointment will be scheduled for 2 weeks from the time of your delivery and I look forward to seeing then. If in the meanwhile however you have any problems, issues, or concerns, please contact the office at [phone] or contact me directly on my cell phone at [phone]. Discharge orders & Medications Prescriptions: Continued prenat.vits,shivani,acs-jnsl-urgnu tablet 1 tab PO DAILY ondansetron 4 mg tablet,disintegrating 4 mg PO Q6H PRN (Reason: nausea and vomiting) Qty: 20 2RF venlafaxine 37.5 mg capsule,extended release 24hr 37.5 mg PO DAILY Qty: 90 2RF Rx Instructions: Take one 37.5mg capsule in addition to 75mg capsule daily by mouth venlafaxine [Effexor XR] 75 mg capsule,extended release 24hr 75 mg PO QDAY Qty: 90 2RF Rx Instructions: Take one 75mg capsule in addition to 37.5mg capsule by mouth once daily Discontinued nifedipine 30 mg tablet extended release See Rx Instructions .ROUTE .COMPLEX Qty: 30 2RF Dose Instruction: take 1 tablet by mouth once daily Rx Instructions: take 1 tablet by mouth once daily nifedipine 10 mg capsule 10 mg PO .q20min PRN (Reason: regular contractions) Qty: 30 2RF Rx Instructions: One tab PO q 20 minutes up to 3 doses PRN regular uterine contractions. If contractions do not stop after 3rd dose, contact office/MD. progesterone micronized 100 mg insert 200 mg vaginal DAILY No Action norethindrone (contraceptive) [Ortho Micronor] 0.35 mg tablet 0.35 mg PO DAILY Qty: 84 5RF Follow up/Referrals: Jolie,Bailee, RN [facility] [Primary Care Provider] - Tariq Riley MD [Physician] - 2 Weeks (Please make a follow-up appointment with Dr. Riley for two weeks !) Discharge Health Status Multidrug resistant organism: No MDRO Diet/Activity/Treatments Diet: Diet as Tolerated Diet comment: High fiber and lots of liquids Other treatments: Careful cleaning and care of your stitches. Tylenol and/or Ibuprofen for pain. 200 mg docusate (Colace) stool softener twice daily. Miralax daily. Skin/Wound/Dressing Care Report to your healthcare provider any signs of infection, such as:: chills, fever, increased pain, unusual drainage and unusual redness Dressing: N/A Visit Report/Discharge Packet Instructions: DI for Labor and Delivery, Vaginal , DI for and Nipple Soreness Discharge Data Primary Care Provider: Bailee Dave
[2022-01-24] MEDS: DOCUSATE 100 MG CAPSULE 200 MG PO (10:03)
[2022-01-24] MEDS: LANOLIN OINT 7 GM 1 APPLIC TOP (10:04)
[2022-01-24] MEDS: VENLAFAXINE ER 75 MG CAP PO (10:06)
[2022-01-24] MEDS: VENLAFAXINE ER 37.5 MG CAP PO (10:06)
[2022-01-24 10:27] VITALS: BP 121/76; PULSE 87; RESP 18; TEMP 36.4
== END 2022-01-24 11:00 | disposition home or self-care (01) | DRG 542 ==
PROVIDERS: Admitting Provider Obstetrics & Gynecology; PCP Nurse Practitioner Family; Referring Provider Obstetrics & Gynecology; Visit Provider Obstetrics & Gynecology
DX: O26.873 Cervical shortening, third trimester (principal); O76 Abnormality in fetal heart rate and rhythm complicating labor and delivery; Z3A.39 39 weeks gestation of pregnancy; Z37.0 Single live birth; O70.20 Third degree perineal laceration during delivery, unspecified; O36.8190 Decreased fetal movements, unspecified trimester, not applicable or unspecified; Z3A.38 38 weeks gestation of pregnancy
CPT/HCPCS: 01967; 36415; 59025; 59050; 59409; 85025; 86850; 86900; 86901; 87635; C9803; G0379

== ENCOUNTER → 2022-08-19 10:29 | Outpatient (CLI) | payer OTHER, MEDICAID, SELFPAY ==
[2022-08-19 11:00] LABS: Add Manual Diff / Slide Review NO; Basophils Absolute Auto 100 /uL (0-100); Basophils Percent Auto 1.2 % (0-2); Eosinophils Absolute Auto 100 /uL (0-450); Eosinophils Percent Auto 1.4 % (2-4); Hematocrit 39.3 % (36-46); Lymphocytes Absolute Auto 1900 /uL (1100-4500); Lymphocytes Percent Auto 36.7 % (25-40); Mean Corpuscular HGB Conc 33.2 % (30-36); Mean Corpuscular Hemoglobin 27.3 PG (26-34); Mean Corpuscular Volume 82.4 fL (80-100); Monocytes Absolute Auto 400 /uL (0-900); Monocytes Percent Auto 7.2 % (3-14); Neutrophils Absolute Auto 2800 /uL (1500-7000); Neutrophils Percent Auto 53.5 % (50-75); Platelet Count 345 X10^3/uL (150-400); Red Blood Cell Count 4.78 X10^6/uL (4.0-5.2); Red Cell Distribution Width 15.1 % (11.6-14.8); White Blood Cell Count 5.3 X10^3/uL (4.5-11.0)
[2022-08-19 11:23] LABS: HEMOLYSIS < 15 (0-50); Iron 178 ug/dL (37-170)
[2022-08-19 11:27] LABS: Alanine Aminotransferase 18 IU/L (<35); Albumin 4.4 g/dL (3.5-5.0); Albumin Globulin Ratio 1.5 (1.0-2.8); Alkaline Phosphatase 99 U/L (38-126); Aspartate Aminotransferase 20 IU/L (14-36); BUN Creatinine Ratio 28.8 (6-22); Bilirubin Total 0.6 mg/dL (0.2-1.3); Blood Urea Nitrogen 15 mg/dL (7-17); Calcium 9.3 mg/dL (8.4-10.2); Carbon Dioxide 30 mmol/L (22-32); Chloride 103 mmol/L (98-107); Estimated Glomerular Filt Rate > 60 mL/min (>60); Globulin 2.9 g/dL (1.7-4.1); Glucose 61 mg/dL (70-100); HEMOLYSIS < 15 (0-50); Potassium 4.4 mmol/L (3.4-5.1); Sodium 140 mmol/L (137-145); Total Protein 7.3 g/dL (6.3-8.2)
[2022-08-19 11:34] LABS: Percent Iron Saturation 38 % (15-50); Total Iron Binding Capacity 468 ug/dL (265-497); Transferrin 347 mg/dL (206-381)
[2022-08-19 11:57] LABS: Thyroid Stimulating Hormone 0.965 uIU/mL (0.47-4.68)
[2022-08-19 12:01] LABS: Ferritin 13 ng/mL (6-137)
[2022-08-19 12:15] LABS: Vitamin B12 817 pg/mL (239-931)
== END ==
PROVIDERS: PCP Family Medicine; Referring Provider Family Medicine; Visit Provider Family Medicine
DX: D64.9 Anemia, unspecified (principal); L65.9 Nonscarring hair loss, unspecified
CPT/HCPCS: 36415; 80053; 82607; 82728; 83540; 83550; 84443; 85025

== ENCOUNTER → 2024-05-26 11:20 | Outpatient (CLI) | payer OTHER, MEDICAID, SELFPAY ==
--- NOTE | 2024-05-26 11:22 | DI.RAD.S_ITS ---
PROCEDURE: XR ELBOW LT MIN 3V INDICATIONS: Pain in left elbow TECHNIQUE: 3 views of the elbow were acquired. COMPARISON: None. FINDINGS: Bones: No fractures or dislocations. No suspicious bony lesions. Soft tissues: No elbow joint effusion. No suspicious soft tissue calcifications. IMPRESSION: No acute bony abnormality or significant joint effusion. Dictated by: Taj Shanks M.D. on 05/26/2024 at 12:38 Approved by: Taj Shanks M.D. on 05/26/2024 at 12:38
== END ==
PROVIDERS: PCP Registered Nurse; Referring Provider Registered Nurse; Visit Provider Registered Nurse
DX: M25.522 Pain in left elbow (principal)
CPT/HCPCS: 73080

== ENCOUNTER → 2024-06-08 13:33 | Outpatient (CLI) | payer OTHER, MEDICAID, SELFPAY ==
[2024-06-08 15:14] LABS: HCG Quantitative /Beta subunit < 2.39 mIU/mL
== END ==
PROVIDERS: PCP Registered Nurse; Referring Provider Obstetrics & Gynecology; Visit Provider Obstetrics & Gynecology
DX: N91.2 Amenorrhea, unspecified (principal)
CPT/HCPCS: 36415; 84702

== ENCOUNTER 2025-02-16 12:39 | Emergency (ER) | payer OTHER, SELFPAY ==
[2025-02-16 12:41] VITALS: BP 128/83; PULSE 78; RESP 16; TEMP 36.6; O2SAT 99; BMI 19.1
--- NOTE | 2025-02-16 12:46 | DI.RAD.S_ITS ---
PROCEDURE: XR WRIST LT MIN 3V INDICATIONS: fall/pain/deformity TECHNIQUE: 4 views of the wrist were acquired. COMPARISON: [facility], , XR HAND LT MIN 3V, 02/16/2025, 12:48. FINDINGS: Bones: There is a 4th metacarpal shaft fracture, with moderate displacement and moderate angulation No fractures or dislocations are seen in the carpal bones or the distal radius or distal ulna. No navicular fractures are seen. No suspicious bony lesions. Soft tissues: No suspicious soft tissue calcifications. IMPRESSION: Fourth metacarpal shaft fracture. Dictated by: Reyes Bolanos M.D. on 02/16/2025 at 12:13 Approved by: Reyes Bolanos M.D. on 02/16/2025 at 12:14
--- NOTE | 2025-02-16 12:46 | DI.RAD.S_ITS ---
PROCEDURE: XR HAND LT MIN 3V INDICATIONS: fall/pain/deformity TECHNIQUE: 3 views of the hand(s) acquired. COMPARISON: [facility], CR, XR WRIST LT MIN 3V, 02/16/2025, 12:48. FINDINGS: Bones: There is a moderately displaced, moderately angulated fracture seen of the 4th metacarpal shaft. No intra-articular involvement is seen. No additional fractures are detected. Soft tissues: No suspicious soft tissue calcifications. IMPRESSION: Fourth metacarpal shaft fracture, without intra-articular involvement seen. Dictated by: Reyes Bolanos M.D. on 02/16/2025 at 12:12 Approved by: Reyes Bolanos M.D. on 02/16/2025 at 12:13
--- NOTE | 2025-02-16 12:51 | ED.UPPEXIN ---
HPI - Extremity Injury (Upper) <Cuco Perez PA-C - Last Filed: 02/16/25 15:26> General Chief Complaint: Extremity Injury, Upper Stated Complaint: Possible broken left hand Time Seen by Provider: 02/16/25 12:48 Source: patient Mode of arrival: Ambulatory History of Present Illness HPI narrative: This is a 29-year-old female presents emergency department due to left wrist, hand, and left 4th and 5th digit pain. She was attempting pertinent in his shorts when they got caught and she fell to the ground with a closed fist. She denies any numbness but does state that she was in pain to those areas. Did not hit her head. No injury to her elbow or shoulder or any other part of her body. Not on blood thinners. Related Data Home Medications ?Medication ?Instructions ?Recorded ?Confirmed venlafaxine 150 mg 150 mg PO DAILY 12/08/24 12/08/24 capsule,extended release 24 hr Previous Rx's ?Medication ?Instructions ?Recorded norethindrone (contraceptive) 0.35 0.35 mg PO DAILY Contraception #84 03/22/ mg tablet tabs oxycodone 5 mg capsule 5 mg PO Q8H PRN pain 7 days #20 02/16/25 caps Allergies Allergy/AdvReac Type Severity Reaction Status Date / Time clonidine (CLONIDINE) Allergy Mild RASH Verified 12/08/24 09:49 Review of Systems <Cuco Perez PA-C - Last Filed: 02/16/25 15:26> Review of Systems Narrative: GENERAL: Denies chills, fatigue, malaise, fever, sweats. HEENT: Denies sinus pain, ear pain, sore throat, difficulty swallowing, dizziness. RESPIRATORY: Denies dyspnea, cough, wheezing, hemoptysis, sputum. CARDIOVASCULAR: Denies chest pain, palpitations, orthopnea, edema, GASTROINTESTINAL: Denies nausea, vomiting, abdominal pain, diarrhea, constipation, melena. : Denies dysuria, frequency, incontinence, hematuria, urinary retention. MUSCULOSKELETAL: Left hand, wrist, and finger pain SKIN: Denies rash, skin lesions, or other NEUROLOGIC: Denies weakness, headache, numbness, change in speech, confusion, seizures, incoordination. PSYCHIATRIC: No concerning psychosocial issues. 12 point review of systems is negative except for those stated above Patient History <Cuco Perez PA-C - Last Filed: 02/16/25 15:26> Medical History Microcytic anemia Abnormal O'Lui glucose challenge test, antepartum No significant medical problems Surgical History Aneurysm of unspecified site Status post tonsillectomy and adenoidectomy Family History Grandfather Age: 79 Cancer Heart disease Hypertension High cholesterol Grandmother Age: 78 Cancer Hypertension High cholesterol Mother Age: 52 High cholesterol Kidney stones Cancer Grandfather Age: 83 Diabetes mellitus Heart disease Hypertension High cholesterol Grandmother Age: 81 Cancer High cholesterol Social History marital status: unmarried,living together number of children: 1 household members: significant other and children lives independently: Yes caregiver/support person: Yes housing: house pets and animals: Yes (Cat - aware of litter and Toxo, Dog) education level: college occupational status: employed current occupational exposures/hazards: Yes (Chemicals, cat scratches, 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) Previous occupational history: Is [employer] travel history: over 6 months ago seatbelt use: always water heater temp set < 120 deg: Yes working smoke detector in home: Yes fire extinguisher in home: No carbon monox detector in home: Yes firearms in home: Yes (In safe in locked room) firearms unloaded and locked: Yes do you feel safe at home: Yes second hand exposure: No alcohol intake: never substance use type: does not use during the past year weight has: remained stable well-balanced diet: daily or most days daily servings fruits/ve or more times/day caffeine: Yes (Small amout discusse 200 mg) Type(s) of exercise: walking frequency: 1-2 times per week Smoking Status: Never smoker Exam <Cuco Perez PA-C - Last Filed: 02/16/25 15:26> Narrative Exam Narrative: GENERAL: Well-developed patient, in mild distress. HEAD: Atraumatic. Normocephalic. EYES: Pupils equal round and reactive. Extraocular motions intact. No scleral icterus. No injection or drainage. ENT: Nose without bleeding, purulent drainage. Throat without erythema, tonsillar hypertrophy or exudate. Airway patent. NECK: Trachea midline. Non tender EXTREMITIES: Mild tenderness to palpation to the left distal radius, left 5th metacarpal, as well as left 4th and 5th digits. Range motion intact. Neurovascularly intact throughout. NEURO: AOx3. SKIN: No rash or erythema of visible areas Initial Vital Signs Initial Vital Signs: Vital Signs Temperature 97.8 F 02/16/25 12:41 Pulse Rate 78 02/16/25 12:41 Respiratory Rate 16 02/16/25 12:41 Blood Pressure 128/83 02/16/25 12:41 Pulse Oximetry 99 02/16/25 12:41 Oxygen Delivery Method Room Air 02/16/25 12:41 <Camila Hooper MD - Last Filed: 02/17/25 08:28> Initial Vital Signs Initial Vital Signs: Vital Signs Temperature 97.8 F 02/16/25 12:41 Pulse Rate 78 02/16/25 12:41 Respiratory Rate 16 02/16/25 12:41 Blood Pressure 128/83 02/16/25 12:41 Pulse Oximetry 99 02/16/25 12:41 Oxygen Delivery Method Room Air 02/16/25 12:41 Procedures <Cuco Perez PA-C - Last Filed: 02/16/25 15:26> Orthopedic Splinting/Casting Injury #1: Time of procedure: 14:38 Side: left Upper Extremity Injury Location: hand Upper Extremity Immobilizer: ulnar gutter Post splinting neuro exam: intact and no change Post splinting vascular exam: no change Placed by: Nursing Course <Cuco Perez PA-C - Last Filed: 02/16/25 15:26> Orders Ordered: Discontinued Medications Hydrocodone Bitart/Acetaminophen (Hydrocodone/Acet 10/325 Tablet) 1 tab PO NOW ONE Stop: 02/16/25 13:37 Last Admin: 02/16/25 13:42 Dose: 1 tab Documented By: BT Ibuprofen (Ibuprofen 400 Mg Tablet) 400 mg PO NOW ONE Stop: 02/16/25 12:55 Last Admin: 02/16/25 13:06 Dose: 400 mg Documented By: RB Consultations Consultation #1: [id number]: Discussed case with the on-call orthopedist, Dr. Anthony, who agreed with the plan for attempting reduction, ulnar gutter splint, nonweightbearing, and follow up in her office. Vital Signs Vital signs: Vital Signs - 8 hr 02/16/25 12:41 02/16/25 14:46 Temperature 97.8 F 98.1 F Pulse Rate 78 80 Respiratory Rate 16 18 Blood Pressure 128/83 119/72 Pulse Oximetry 99 97 Oxygen Delivery Method Room Air Room Air <Camila Hooper MD - Last Filed: 02/17/25 08:28> Orders Ordered: Discontinued Medications Hydrocodone Bitart/Acetaminophen (Hydrocodone/Acet 10/325 Tablet) 1 tab PO NOW ONE Stop: 02/16/25 13:37 Last Admin: 02/16/25 13:42 Dose: 1 tab Documented By: BT Ibuprofen (Ibuprofen 400 Mg Tablet) 400 mg PO NOW ONE Stop: 02/16/25 12:55 Last Admin: 02/16/25 13:06 Dose: 400 mg Documented By: RB Vital Signs Vital signs: Vital Signs - 8 hr 02/16/25 12:41 02/16/25 14:46 Temperature 97.8 F 98.1 F Pulse Rate 78 80 Respiratory Rate 16 18 Blood Pressure 128/83 119/72 Pulse Oximetry 99 97 Oxygen Delivery Method Room Air Room Air MDM - Extremity Injury (Upper) <Cuco Perez PA-C - Last Filed: 02/16/25 15:26> Imaging Data Extremity x-ray #1: Radiologist's Impression: [address] [address] XRay Report Signed Patient: Heaven Figueroa MR#: [id number] : 1995 Acct:[id number] Age/Sex: 29 / F Date of Service: 02/16/25 Loc: ED Accession Number: [id number] Procedure: XR wrist LT min 3V Ordering Provider: Camila Hooper MD PROCEDURE: XR WRIST LT MIN 3V INDICATIONS: fall/pain/deformity TECHNIQUE: 4 views of the wrist were acquired. COMPARISON: [facility], , XR HAND LT MIN 3V, 02/16/2025, 12:48. FINDINGS: Bones: There is a 4th metacarpal shaft fracture, with moderate displacement and moderate angulation No fractures or dislocations are seen in the carpal bones or the distal radius or distal ulna. No navicular fractures are seen. No suspicious bony lesions. Soft tissues: No suspicious soft tissue calcifications. IMPRESSION: Fourth metacarpal shaft fracture. Dictated by: Reyes Bolanos M.D. on 02/16/2025 at 12:13 Approved by: Reyes Bolanos M.D. on 02/16/2025 at 12:14 Extremity x-ray #2: Radiologist's Impression: [address] [address] XRay Report Signed Patient: Heaven Figueroa MR#: [id number] : 1995 Acct:[id number] Age/Sex: 29 / F Date of Service: 02/16/25 Loc: ED Accession Number: [id number] Procedure: XR hand LT min 3V Ordering Provider: Camila Hooper MD PROCEDURE: XR HAND LT MIN 3V INDICATIONS: fall/pain/deformity TECHNIQUE: 3 views of the hand(s) acquired. COMPARISON: [facility], XR WRIST LT MIN 3V, 02/16/2025, 12:48. FINDINGS: Bones: There is a moderately displaced, moderately angulated fracture seen of the 4th metacarpal shaft. No intra-articular involvement is seen. No additional fractures are detected. Soft tissues: No suspicious soft tissue calcifications. IMPRESSION: Fourth metacarpal shaft fracture, without intra-articular involvement seen. Dictated by: Reyes Bolanos M.D. on 02/16/2025 at 12:12 Approved by: Reyes Bolanos M.D. on 02/16/2025 at 12:13 Extremity x-ray #3: Radiologist's Impression: [address] [address] XRay Report Signed Patient: Heaven Figueroa MR#: [id number] : 1995 Acct:[id number] Age/Sex: 29 / F Date of Service: 02/16/25 Loc: ED Accession Number: [id number] Procedure: XR hand LT 2V Ordering Provider: Cuco Perez PA-C PROCEDURE: XR HAND LT 2V INDICATIONS: Post reduction TECHNIQUE: 2 views of the hand(s) acquired. COMPARISON: [facility], CR, XR HAND LT MIN 3V, 02/16/2025, 12:48. FINDINGS: Bones: Redemonstration of the oblique fracture through the 4th metacarpal. No new fractures or dislocations. Carpal bones are normally aligned. No suspicious bony lesions. Soft tissues: No suspicious soft tissue calcifications. Interval casting of the right arm, wrist and proximal hand. IMPRESSION: Redemonstration of the oblique fracture through the 4th metacarpal status post casting. Dictated by: Maxime De Luna M.D. on 02/16/2025 at 15:08 Approved by: Maxime De Luna M.D. on 02/16/2025 at 15:14 MDM Narrative Medical decision making narrative: ED course: This is a otherwise healthy 29-year-old female presents emergency department after mechanical fall with a moderately displaced and angulated 4th metacarpal fracture. This was discussed with the on-call orthopedist, Dr. Anthony, who agree with the plan for reduction attempt, ulnar gutter splint, nonweightbearing, and follow up with her office. Assistance very much appreciated. Fracture was reduced with interval improvement and splinted. Neurovascularly intact post splint placement. Patient was given oxycodone for breakthrough pain. Remainder of x-rays were unremarkable. CC: Hand pain Complicating co-morbidities: None Data collected from: Previous notes Medical records reviewed: Patient was last seen in this emergency department 4 years ago due to abdominal pain while . No pertinent medical history. Differential considered, but not limited to: Fracture, neurovascular injury, sprain Exam documented above, pertinent findings include: Neurovascularly intact pre and post splint placement Lab Test results independently reviewed as above. Pertinent findings: None obtained Imaging studies independently reviewed: Showing a moderately displaced and angulated fracture of the 4th metacarpal. Scores Used: None MIPS Elements: None Consultations: None Treatments: Reduction and splinting Re-evaluations: Neurovascularly intact post splint placement Discussion: Discussed plan with the patient was comfortable with the plan Diagnosis: Left 4th metacarpal fracture Disposition: see below, along with detailed discharge instructions that have been reviewed with patient as well as indications for ED re-evaluation and additional outpatient follow up Discharge Plan Departure Patient Disposition: Home Clinical Impression: Fracture of metacarpal Qualifiers: Encounter type: initial encounter Metacarpal bone: fourth Fracture type: closed Metacarpal location: shaft Fracture alignment: displaced Laterality: left Qualified Code(s): S62.325A - Displaced fracture of shaft of fourth metacarpal bone, left hand, initial encounter for closed fracture Activity Restrictions/Additional Instructions: Thank you for coming to the [facility] Emergency Department today. As we discussed you have a fracture in your hand. We have splinted the hand to help keep it in place. Please do not bear any weight through your left upper extremity. Please do not get the splint wet. You may use Tylenol and ibuprofen as needed for pain but you may use the oxycodone prescribed for breakthrough pain. Please call Dr. Logan office tomorrow to arrange for an appointment early next week. Please return to the emergency department if you develop any significant new or worsening pain came on numbness, or any other concerning signs or symptoms. I hope you feel better soon. Please follow up with your primary care provider within a week if your symptoms continue. If you do not have a primary care provider please contact the [facility] Resource line at [phone]. They will ask some questions about your medical history and help you get set up with a provider in the community. Prescriptions: New oxycodone 5 mg capsule 5 mg PO Q8H PRN (Reason: pain) 7 Days Qty: 20 0RF No Action venlafaxine 150 mg capsule,extended release 24hr 150 mg PO DAILY norethindrone (contraceptive) 0.35 mg tablet 0.35 mg PO DAILY Qty: 84 2RF Referrals: Nola Duvall ARNP [Primary Care Provider, Family Practice] Cindi Anthony DO [Physician, Orthopedic Surgery] - 5-7 days Referral Note: f/u regarding 4 metacarpal fracture, thank you! Clinical Impression: Fracture of metacarpal Stand Alone Forms: Patient Portal/API, Work Release Note ED Sign-out <Camila Hooper MD - Last Filed: 02/17/25 08:28> Cosign ED Attending Wendy Attestation: I was immediately available in the department for consultation throughout this patient's visit. Camila Hooper MD
--- NOTE | 2025-02-16 12:54 | PC.NURSE ---
Patient states that she was taking off her shorts when she fell on left wrist. Patient states that she heard a crunching sound.
[2025-02-16] MEDS: IBUPROFEN 400 MG TABLET PO (13:06)
[2025-02-16] MEDS: HYDROCODONE/ACET 10/325 TABLET 1 TAB PO (13:42)
--- NOTE | 2025-02-16 13:43 | DI.RAD.S_ITS ---
PROCEDURE: XR HAND LT 2V INDICATIONS: Post reduction TECHNIQUE: 2 views of the hand(s) acquired. COMPARISON: [facility], CR, XR HAND LT MIN 3V, 02/16/2025, 12:48. FINDINGS: Bones: Redemonstration of the oblique fracture through the 4th metacarpal. No new fractures or dislocations. Carpal bones are normally aligned. No suspicious bony lesions. Soft tissues: No suspicious soft tissue calcifications. Interval casting of the right arm, wrist and proximal hand. IMPRESSION: Redemonstration of the oblique fracture through the 4th metacarpal status post casting. Dictated by: Maxime De Luna M.D. on 02/16/2025 at 15:08 Approved by: Maxime De Luna M.D. on 02/16/2025 at 15:14
[2025-02-16 14:46] VITALS: BP 119/72; PULSE 80; RESP 18; TEMP 36.7; O2SAT 97
== END 2025-02-16 14:46 | disposition home or self-care (01) ==
PROVIDERS: Emergency Provider Physician Assistant Medical; PCP Registered Nurse
DX: S62.325A Displaced fracture of shaft of fourth metacarpal bone, left hand, initial encounter for closed fracture (principal); W18.30XA Fall on same level, unspecified, initial encounter
CPT/HCPCS: 26605; 73110; 73120; 73130; 99283

== ENCOUNTER 2025-02-18 13:14 | Emergency (ER) | payer OTHER, SELFPAY ==
--- NOTE | 2025-02-18 13:28 | ED.GENADULT ---
HPI - General Adult General Stated complaint: Returning; Numbness in Fingers L Hand Post-Injury Time Seen by Provider: 02/18/25 13:20 History of Present Illness HPI narrative: 29-year-old woman who was seen on February 16 after a fall and found to have I 4th metacarpal oblique fracture. She was placed in a essentially gutter ulnar splint and notes that the 1st 2 days seemed adequate however yesterday and today she is noticing increasing pain that is difficult to control, she actually took an oxycodone this morning that she had not been requiring previously and she is concerned that the base of her ring finger seems a bit numb. She comes in for further evaluation. Related Data Home Medications ?Medication ?Instructions ?Recorded ?Confirmed venlafaxine 150 mg 150 mg PO DAILY 12/08/24 12/08/24 capsule,extended release 24 hr Previous Rx's ?Medication ?Instructions ?Recorded norethindrone (contraceptive) 0.35 0.35 mg PO DAILY Contraception #84 03/22/ mg tablet tabs oxycodone 5 mg capsule 5 mg PO Q8H PRN pain 7 days #20 02/16/25 caps Allergies Allergy/AdvReac Type Severity Reaction Status Date / Time clonidine (CLONIDINE) AdvReac Mild RASH Verified 02/18/25 13:37 Patient History Medical History Microcytic anemia Abnormal O'Lui glucose challenge test, antepartum No significant medical problems Surgical History Aneurysm of unspecified site Status post tonsillectomy and adenoidectomy Family History Grandfather Age: 79 Cancer Heart disease Hypertension High cholesterol Grandmother Age: 78 Cancer Hypertension High cholesterol Mother Age: 52 High cholesterol Kidney stones Cancer Grandfather Age: 83 Diabetes mellitus Heart disease Hypertension High cholesterol Grandmother Age: 81 Cancer High cholesterol Social History marital status: unmarried,living together number of children: 1 household members: significant other and children lives independently: Yes caregiver/support person: Yes housing: house pets and animals: Yes (Cat - aware of litter and Toxo, Dog) education level: college occupational status: employed current occupational exposures/hazards: Yes (Chemicals, cat scratches, 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) Previous occupational history: Is [employer] travel history: over 6 months ago seatbelt use: always water heater temp set < 120 deg: Yes working smoke detector in home: Yes fire extinguisher in home: No carbon monox detector in home: Yes firearms in home: Yes (In safe in locked room) firearms unloaded and locked: Yes do you feel safe at home: Yes second hand exposure: No alcohol intake: never substance use type: does not use during the past year weight has: remained stable well-balanced diet: daily or most days daily servings fruits/ve or more times/day caffeine: Yes (Small amout discusse 200 mg) Type(s) of exercise: walking frequency: 1-2 times per week Exam Initial Vital Signs Initial Vital Signs: General: Alert appropriate in no acute distress Respiratory: Able to speak in full sentences, no obvious respiratory distress Skin: No obvious rashes, warm and dry Neurologic: Grossly intact no obvious asymmetries or abnormalities Psych: appropriate insight and affect, cooperative Extremity: With cast in place she has slight delayed capillary refill in the ring in the middle finger. The splint is unwrapped and with the additional swelling that she has through the midportion of her hand the cast is too tight. With removal of the cast her pain is almost entirely resolved Medical Decision Making MDM Narrative Medical decision making narrative: 29-year-old woman with a right 4th metacarpal fracture cast was placed on the 26th increasing pain in the last 36 hours. With her additional swelling the cast is quite tight and constricting. Removed in the emergency department and a new splint is replaced. Neurovascularly intact after placement and feeling much better. She has a follow up appointment with the orthopedic surgeon on of this week. Questions are answered she is safe for discharge Discharge Plan Departure Patient Disposition: Home Clinical Impression: Closed hand fracture Qualifiers: Encounter type: initial encounter Laterality: left Qualified Code(s): S62.92XA - Unspecified fracture of left wrist and hand, initial encounter for closed fracture Activity Restrictions/Additional Instructions: Thank you for coming in today, with the increased pain and numbness it was absolutely appropriate to have your splint rechecked. With the swelling through the middle of your hand, your original splint is now a bit too tight. We remove that is splint and replaced it with another that is not so tight. Continue your current pain medicine regimen and make sure you keep your orthopedic appointment next week If you find that you are getting worse or develop any new symptoms, please feel free to return to the emergency department for further evaluation. Prescriptions: No Action venlafaxine 150 mg capsule,extended release 24hr 150 mg PO DAILY norethindrone (contraceptive) 0.35 mg tablet 0.35 mg PO DAILY Qty: 84 2RF oxycodone 5 mg capsule 5 mg PO Q8H PRN (Reason: pain) 7 Days Qty: 20 0RF Referrals: Nola Duvall ARNP [Primary Care Provider, Family Practice] Stand Alone Forms: Patient Portal/API
[2025-02-18 13:37] VITALS: BP 117/71; PULSE 100; RESP 16; TEMP 36.5; O2SAT 100; BMI 19.1
[2025-02-18 14:21] VITALS: BP 120/80; PULSE 62; RESP 20; TEMP 36.4; O2SAT 100
== END 2025-02-18 14:23 | disposition home or self-care (01) ==
PROVIDERS: Emergency Provider Emergency Medicine; PCP Registered Nurse
DX: S62.305A Unspecified fracture of fourth metacarpal bone, left hand, initial encounter for closed fracture (principal); W19.XXXA Unspecified fall, initial encounter
CPT/HCPCS: 99281

== ENCOUNTER 2025-02-19 14:32 | Emergency (ER) | payer OTHER, SELFPAY ==
[2025-02-19 14:36] VITALS: BP 112/66; PULSE 84; RESP 16; TEMP 36.6; O2SAT 100
--- NOTE | 2025-02-19 14:39 | ED_ITS ---
HPI - General Adult General Chief complaint: Recheck/Abnormal Lab/Rx Stated complaint: lt hand still numb, following break, t-1 Time Seen by Provider: 02/19/25 14:35 History of Present Illness HPI narrative: 29-year-old woman 4th metacarpal fracture on February 16, splint [facility], she came in yesterday with complaints of numbness through the base of the hand and down through her ring finger. A splint was quite tight secondary to swelling it was removed and replaced. She was instructed come back she had continued numbness. She returns today is not having pain but is still noticing numbness at the base of the finger and around the area of the fracture. Related Data Home Medications ?Medication ?Instructions ?Recorded ?Confirmed venlafaxine 150 mg 150 mg PO DAILY 12/08/24 capsule,extended release 24 hr Previous Rx's ?Medication ?Instructions ?Recorded norethindrone (contraceptive) 0.35 0.35 mg PO DAILY Co ntraception #84 03/22/24 mg tablet tabs oxycodone 5 mg capsule 5 mg PO Q8H PRN pain 7 days #20 02/16/25 caps Allergies Allergy/AdvReac Type Severity Reaction Status Date / Time clonidine (CLONIDINE) AdvReac Mild RASH Verified 02/19/25 14:36 Patient History Medical History Microcytic anemia Abnormal O'Lui glucose challenge test, antepartum No significant medical problems Surgical History Aneurysm of unspecified site Status post tonsillectomy and adenoidectomy Family History Grandfather Age: 79 Cancer Heart disease Hypertension High cholesterol Grandmother Age: 78 Cancer Hypertension High cholesterol Mother Age: 52 High cholesterol Kidney stones Cancer Grandfather Age: 83 Diabetes mellitus Heart disease Hypertension High cholesterol Grandmother Age: 81 Cancer High cholesterol Social History marital status: unmarried,living together number of children: 1 household members: significant other and children lives independently: Yes caregiver/support person: Yes housing: house pets and animals: Yes (Cat - aware of litter and Toxo, Dog) education level: college occupational status: employed current occupational exposures/hazards: Yes (Chemicals, cat scratches, 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) 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 travel history: over 6 months ago seatbelt use: always water heater temp set < 120 deg: Yes working smoke detector in home: Yes fire extinguisher in home: No carbon monox detector in home: Yes firearms in home: Yes (In safe in locked room) firearms unloaded and locked: Yes do you feel safe at home: Yes second hand exposure: No alcohol intake: never substance use type: does not use during the past year weight has: remained stable well-balanced diet: daily or most days daily servings fruits/ve or more times/day caffeine: Yes (Small amout discusse 200 mg) Type(s) of exercise: walking frequency: 1-2 times per week Exam Initial Vital Signs Initial Vital Signs: Vital Signs Temperature 97.9 F 02/19/25 14:36 Pulse Rate 84 02/19/25 14:36 Respiratory Rate 16 02/19/25 14:36 Blood Pressure 112/66 02/19/25 14:36 Pulse Oximetry 100 02/19/25 14:36 Oxygen Delivery Method Room Air 02/19/25 14:36 General: Alert appropriate in no acute distress Respiratory: Able to speak in full sentences, no obvious respiratory distress Skin: No obvious rashes, warm and dry Neurologic: Grossly intact no obvious asymmetries or abnormalities Psych: appropriate insight and affect, cooperative Extremity: Right hand is examined, splint has been loosened adequately she has good capillary refill in fingers. There is still quite a bit of bruising/hematoma/swelling through the midportion of the hand consistent with her 4th metacarpal fracture. There is some mild decreased sensation over the palmar surface, good sensation at the tip of the ring finger. Course Vital Signs Vital signs: Vital Signs - 8 hr 02/19/25 14:36 Temperature 97.9 F Pulse Rate 84 Respiratory Rate 16 Blood Pressure 112/66 Pulse Oximetry 100 Oxygen Delivery Method Room Air Medical Decision Making MDM Narrative Medical decision making narrative: 29-year-old woman who broke her hand, 4th metacarpal fracture slightly displaced seen on February 16. Returned on February 18 with increased pain, the swelling was causing the cast to be too tight. She was resplinted in a position of comfort. Noticing some numbness at the base of her fingers and comes in for further evaluation today. There has been more swelling the splint was loosened even further. Pain improved with the loosening however she was still concerned with the numbness. I suspect that that is simply due to the amount of swelling in the hematoma that is developing the midportion of the hand. The numbness is partial and does not involve the distal fingertips. Reassurance is given. She has not appointment on with the orthopedic surgeon and will call on Thursday to see if that might be moved up because of her concerns with swelling and paresthesia. She is safe for discharge Discharge Plan Departure Patient Disposition: Home Clinical Impression: Fracture, metacarpal shaft Qualifiers: Encounter type: subsequent encounter Metacarpal bone: fourth Fracture type: closed Fracture alignment: displaced Laterality: left Prescriptions: No Action venlafaxine 150 mg capsule,extended release 24hr 150 mg PO DAILY norethindrone (contraceptive) 0.35 mg tablet 0.35 mg PO DAILY Qty: 84 2RF oxycodone 5 mg capsule 5 mg PO Q8H PRN (Reason: pain) 7 Days Qty: 20 0RF Referrals: Nola Duvall ARNP [Primary Care Provider, Family Practice] Stand Alone Forms: Patient Portal/API
== END 2025-02-19 14:40 | disposition home or self-care (01) ==
PROVIDERS: Emergency Provider Emergency Medicine; PCP Registered Nurse
DX: S62.323A Displaced fracture of shaft of third metacarpal bone, left hand, initial encounter for closed fracture (principal); X58.XXXA Exposure to other specified factors, initial encounter
CPT/HCPCS: 99281

== ENCOUNTER 2025-05-04 10:45 | Outpatient (RCR) | payer OTHER, SELFPAY ==
--- NOTE | 2025-04-05 13:21 | OT.OP.EVAL ---
Visit Care Team Role Provider Type [facility] Family Provider Advanced Community Aide Primary Care Provider Specialty: Family Practice Address: [address] [place] [address]. [address], [address] Phone: Fax: Email: [email or web address] Cindi Anthony DO Attending Provider Physician Referring Provider Specialty: Orthopedics Orthopedic Surgery Address: [address] [place] [address], [address] Email: [email or web address] Occupational Therapy Initial Evaluation OT Outpatient Adult Evaluation Start: 04/05/25 08:31 Freq: Status: Active Protocol: Document 04/05/25 09:45 (Rec: 04/05/25 08:40 [id number]) General Information - Adult Visit Number 1 of 12 Plan of Care Dates 04/05/25-06/28/25 Insurance no pre-auth;no copay/deductible;max 12 OT visits, Information including 1 OT evaluation Visit Start Date 04/05/25 Visit Start Time 09:45 Visit Stop Time 10:30 Treatment Setting Outpatient Care Note Type Initial Evaluation Referring Physician Dr. Cindi Anthony Reason for Referral L 4th metacarpal fracture Identification Yes Confirmed Identification EMR Confirmed By Medical History Pt fell at home 02/16/25 and was casted for 4 weeks (the initial cast immobilized her entire hand blocking thumb and PIP joints, she had to get it recasted at some point during the 4 weeks and was placed in a new cast that allowed motion of thumb), and was then placed in a splint for 2 weeks, per pt, she has been cleared with no restrictions per MD Social History I really only came because my job said I needed to for me to return to work but, I don't think it will impact my ability to do my job Patient Questionnaires Quick Dash UE Score 25 Quick Dash UE 20 to 39% Impaired (Score 20-39) Impairment Quick Dash W&S Score W: 56.3 Quick Dash Work and 40 to 59% Impaired (Score 40-59) Sport Impairment Goals Objective MMT BUE WFL, AROM of BUE WFL, Measurements Reproductive Surgeon: R: - Average: 27lb L: 20/18/18 - Average: 18.7lb 3 Jaw Jorje: R: 17/17/16 - Average: 16.7lb L: 9.5/9/9 - Average: 9.2lb Lateral Pinch: R: /15 - Average: 14.3lb L: 11//10.5 - Average: 10.8lb Mild swelling noted at L dorsal palm. Patient reports minimal resting pain (0?1/10) and activity-related pain up to 5/10, resolving with rest. Sensory: reports mild numbness in L palm; denies tingling. Treatment Education provided on injury, anatomy of hand, etiology of presenting symptoms, tendon glides, theraputty- based tram inspector strengthening, retrograde massage, edema management (elevation, thermal modalities, contrast baths). Patient demonstrated good understanding and return demonstration of exercises. Assessment/Plan Patient Response Good Rehabilitation Excellent Potential Impairments ADLs,Coordination/Dexterity,Flexibility,Functional Identified Activities,Motor Function,Pain,Weakness,Range of Motion ,Recreational Activities,Meaningful Activities, Stiffness,Work Capacity,Soft Tissue Mobility,Processing of Sensory Input Progress Towards Good Progress Goals Treatment Assessment 29 year old right hand dominant female referred by Dr. Cindi Anthony s/p GLF while getting dressed with resultant fracture of L 4th metacarpal on 02/16/25. Pt reports falling while getting dressed and landing on her closed left fist in an attempt to catch herself. She was immobilized in a cast for 4 weeks?initially in a cast that restricted motion of the thumb and PIP joints, later replaced with a cast allowing thumb motion?followed by 2 weeks in a splint. Per patient report, she has been cleared for unrestricted activity by her physician. She presents to occupational therapy at the request of her employer to confirm work readiness and address any residual deficits. 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 She reports her primary functional difficulties include opening jars, holding plates, making a tight fist, and gripping objects firmly. 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 Patient reports she can modify most tasks but anticipates pain as a limiting factor. She has currently been managing ADLs, IADL, childcare, and pet care independently with modifications. Pain is primary limiting factor for job-related tasks rather than strength alone. Presentation is consistent with post- immobilization weakness, mild residual edema, and activity-provoked pain in the left hand following a healed metacarpal fracture. The mild sensory change in the palm is likely secondary to post-casting soft tissue adaptation or mild nerve irritation. Functional tolerance is limited primarily by discomfort during gripping tasks, with measurable deficits in tram inspector and pinch strength compared to the right hand. Skilled OT is indicated to address strength, endurance, pain modulation, edema management, and sensory re- education. Home Exercise Tendon Glides, Theraputty exercises, thermal modalities Program for pain management Reviewed with Goals,Progress Being Made,Home Exercise Program Patient Patient Good Understanding Length of treatment 6 (weeks) Plan of Care Start 04/05/25 Date Plan of Care End 05/17/25 Date Treatment Frequency Twice a Week Treatment Duration 45 Minutes Therapeutic Contents Active Range of Motion,Adaptive Equipment Education, Client Education,Functional Activities,Home Exercise Program,Education,Self-Care,Stretching/Flexibility Activities,Therapeutic Activities,Therapeutic Exercises ,Modalities Modalities As Needed Types of Modalities Contrast Bath,Ice Massage,Other Additional Types of MHP, paraffin Modalities Patient Instruction Home Exercise Program,Plan of Care,Questions/Concerns Patient Continue with Current Program Recommendations
--- NOTE | 2025-04-05 13:28 | OT.OPPOC ---
Physical, Occupational & Speech [facility] [id number] 1995 Visit Care Team Role Provider Type [facility] Family Provider Advanced Automobile Lights Assembler Primary Care Provider Address: [address] [place] [address]. [facility] [address], [place], [address] Phone: Fax: Cindi Anthony DO Attending Provider Physician Referring Provider Address: [address] [place] [address], [address] Occupational Therapy Plan of Care OT Outpatient Adult Evaluation Start: 04/05/25 08:31 Freq: Status: Active Protocol: Document 04/05/25 09:45 (Rec: 04/05/25 08:40 [id number]) General Information - Adult Visit Information Visit Number 1 of 12 Plan of Care Dates 04/05/25-06/28/25 Insurance no pre-auth;no copay/deductible;max 12 OT visits, Information including 1 OT evaluation Session Time Visit Start Date 04/05/25 Visit Start Time 09:45 Visit Stop Time 10:30 Setting Treatment Setting Outpatient Care Visit Type Note Type Initial Evaluation Referral Referring Physician Dr. Cindi Anthony Reason for Referral L 4th metacarpal fracture Identification Identification Yes Confirmed Identification EMR Confirmed By Medical Information Medical History Pt fell at home 02/16/25 and was casted for 4 weeks (the initial cast immobilized her entire hand blocking thumb and PIP joints, she had to get it recasted at some point during the 4 weeks and was placed in a new cast that allowed motion of thumb), and was then placed in a splint for 2 weeks, per pt, she has been cleared with no restrictions per MD Social Information Social History I really only came because my job said I needed to for me to return to work but, I don't think it will impact my ability to do my job Patient Questionnaires Quick Dash- Upper Extremity Quick Dash UE Score 25 Quick Dash UE 20 to 39% Impaired (Score 20-39) Impairment Quick Dash- Work and Sports Modules Quick Dash W&S Score W: 56.3 Quick Dash Work and 40 to 59% Impaired (Score 40-59) Sport Impairment Goals Objective Measurements Objective MMT BUE WFL, AROM of BUE WFL, Measurements Asbestos Brake Lining Finisher: R: - Average: 27lb L: 20/ - Average: 18.7lb 3 Jaw : R: /16 - Average: 16.7lb L: 9.5/9/9 - Average: 9.2lb Lateral Pinch: R: /15 - Average: 14.3lb L: 11/11/10.5 - Average: 10.8lb Mild swelling noted at L dorsal palm. Patient reports minimal resting pain (0?1/10) and activity-related pain up to 5/10, resolving with rest. Sensory: reports mild numbness in L palm; denies tingling. Treatment Treatment Education provided on injury, anatomy of hand, etiology of presenting symptoms, tendon glides, theraputty- based psychologists strengthening, retrograde massage, edema management (elevation, thermal modalities, contrast baths). Patient demonstrated good understanding and return demonstration of exercises. Short Term Goals Short Term Goals Within 3-4 Weeks: 1. Patient will be independent with HEP and pain management modalities for home carryover of therapeutic goals for increased independence with functional tasks . 2. Patient will demonstrate increased L hand psychologists strength to at least 22 lb average without pain above 3 /10 to improve efficiency in jar opening and carrying objects. 3. Patient will increase L 3-jaw pinch to at least 12 lb average to improve dexterity for fine motor work tasks. 4. Patient will verbalize and demonstrate independence with 3 pain management strategies (heat, contrast bath, activity modification) for improved work tolerance. Timing Machine Operator Goals Senior Care Goals Within 5-6 Weeks: 1. Patient will demonstrate L hand psychologists strength of >/= 24.3lb to enable safe, efficient animal restraint during work tasks. 2. Patient will demonstrate L 3-jaw and lateral pinch strength >/= 15lb for 3-jaw and 13lb for lateral pinch to perform blood draws and handle work tools without pain. 3. Patient will score =10 on the QuickDASH Work Module, indicating improved functional ability and reduced disability. Assessment/Plan Assessment Patient Response Good Rehabilitation Excellent Potential Impairments ADLs,Coordination/Dexterity,Flexibility,Functional Identified Activities,Motor Function,Pain,Weakness,Range of Motion ,Recreational Activities,Meaningful Activities, Stiffness,Work Capacity,Soft Tissue Mobility,Processing of Sensory Input Progress Towards Good Progress Goals Treatment Assessment 29 year old right hand dominant female referred by Dr. Cidni Anthony s/p GLF while getting dressed with resultant fracture of L 4th metacarpal on 02/16/25. Pt reports falling while getting dressed and landing on her closed left fist in an attempt to catch herself. She was immobilized in a cast for 4 weeks?initially in a cast that restricted motion of the thumb and PIP joints, later replaced with a cast allowing thumb motion?followed by 2 weeks in a splint. Per patient report, she has been cleared for unrestricted activity by her physician. She presents to occupational therapy at the request of her employer to confirm work readiness and address any residual deficits. 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 She reports her primary functional difficulties include opening jars, holding plates, making a tight fist, and gripping objects firmly. 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 Patient reports she can modify most tasks but anticipates pain as a limiting factor. She has currently been managing ADLs, IADL, childcare, and pet care independently with modifications. Pain is primary limiting factor for job-related tasks rather than strength alone. Presentation is consistent with post- immobilization weakness, mild residual edema, and activity-provoked pain in the left hand following a healed metacarpal fracture. The mild sensory change in the palm is likely secondary to post-casting soft tissue adaptation or mild nerve irritation. Functional tolerance is limited primarily by discomfort during gripping tasks, with measurable deficits in psychologists and pinch strength compared to the right hand. Skilled OT is indicated to address strength, endurance, pain modulation, edema management, and sensory re- education. Home Exercise Tendon Glides, Theraputty exercises, thermal modalities Program for pain management Reviewed with Goals,Progress Being Made,Home Exercise Program Patient Patient Good Understanding Plan Length of treatment 6 (weeks) Plan of Care Start 04/05/25 Date Plan of Care End 05/17/25 Date Treatment Frequency Twice a Week Treatment Duration 45 Minutes Therapeutic Contents Active Range of Motion,Adaptive Equipment Education, Client Education,Functional Activities,Home Exercise Program,Education,Self-Care,Stretching/Flexibility Activities,Therapeutic Activities,Therapeutic Exercises ,Modalities Modalities As Needed Types of Modalities Contrast Bath,Ice Massage,Other Additional Types of MHP, paraffin Modalities Patient Instruction Home Exercise Program,Plan of Care,Questions/Concerns Patient Continue with Current Program Recommendations Electronically Signed by: Debora Estes OT 04/05/25 0037 If you are in agreement with this Plan of Care, please return a signed and dated copy. I have reviewed this Plan of Care and certify that the skilled therapy services above are required to meet the patient?s needs. Physician Signature Date Printed Name and Credentials Clinical Instructor Signature Printed Name and Credentials
--- NOTE | 2025-04-13 13:37 | OT.OP.TRT ---
Visit Care Team Role Provider Type TOMAS SarmientoP- Family Provider Advanced Market Development Analyst Primary Care Provider Specialty: Family Practice Address: [address] [place] [address]. [address], [address] Phone: Fax: Email: [email or web address] Cindi Anthony DO Attending Provider Physician Referring Provider Specialty: Orthopedics Orthopedic Surgery Address: [address] [place] [address], [address] Email: [email or web address] Occupational Therapy Treatment Note OT Outpatient Treatment Note - Adult Start: 04/05/25 08:31 Freq: Status: Active Protocol: Document 04/13/25 10:45 (Rec: 04/13/25 12:13 [id number]) OT Outpatient Adult Treatment Note Session Time Visit Start Date 04/13/25 Visit Start Time 10:45 Visit Stop Time 11:30 Visit Information Visit Number 2 of 12 Plan of Care Dates 04/05/25-05/17/25 Insurance no pre-auth;no copay/deductible;max 12 OT visits, Information including 1 OT eval Setting Treatment Setting Outpatient Care Visit Type Note Type Treatment Note - Subjective Identification Type Name Identification Medical Record Reconciled With Observations They fired me without even telling me and we also had an unexpected in the family so I have been using it alot to help with the estate - Objective Short Term Goals Within 3-4 Weeks: 1. Patient will be independent with HEP and pain management modalities for home carryover of therapeutic goals for increased independence with functional tasks . 2. Patient will demonstrate increased L hand research pharmacist strength to at least 22 lb average without pain above 3 /10 to improve efficiency in jar opening and carrying objects. 3. Patient will increase L 3-jaw pinch to at least 12 lb average to improve dexterity for fine motor work tasks. 4. Patient will verbalize and demonstrate independence with 3 pain management strategies (heat, contrast bath, activity modification) for improved work tolerance. Alf Goals Within 5-6 Weeks: 1. Patient will demonstrate L hand research pharmacist strength of >/= 24.3lb to enable safe, efficient animal restraint during work tasks. 2. Patient will demonstrate L 3-jaw and lateral pinch strength >/= 15lb for 3-jaw and 13lb for lateral pinch to perform blood draws and handle work tools without pain. 3. Patient will score =10 on the QuickDASH Work Module, indicating improved functional ability and reduced disability. - Treatment 1 Descriptor Patient participated in a paraffin warm-up followed by partial review of HEP including tendon glides in all finger planes with good return demo. Session included extensive education and return demonstration of retrograde massage, thermal modalities, and RICE strategies for edema management. Patient tolerated gentle massage well and verbalized good understanding of swelling management education. She reported not yet initiating her HEP or theraputty program at home due to recent personal stressors, including a family and associated responsibilities. Patient noted increased pain with gripping light objects this week, which correlates with observed mild increase in dorsal hand swelling compared to evaluation. Exercises 1 Descriptor tendon glides in all finger planes, 2x10 with moderate verbal and visual cues for accuracy, good return demo, well tolerated without reported pain - Assessment Patient Response to Good Treatment Rehabilitation Excellent Potential Impairments ADLs,Coordination/Dexterity,Flexibility,Functional Identified Activities,Motor Function,Pain,Weakness,Recreational Activities,Meaningful Activities,Stiffness,Work Capacity,Soft Tissue Mobility Progress Towards Good Progress Goals Assessment of Improving Overall Progress Assessment of Patient presents with mild exacerbation of swelling and Improvement pain likely related to increased use of the affected hand during recent personal and household tasks. Despite these factors, she demonstrates good participation and comprehension of education provided. Given the combination of functional overuse and mild observed swelling, therapy will proceed conservatively at this time, focusing on tendon glides and gentle AROM to ensure tolerance before progressing to strengthening. Patient is advised to continue brace wear during higher-demand activities and to utilize edema management strategies consistently. She will benefit from continued skilled OT to reinforce education, support graded activity tolerance, and facilitate safe progression toward strengthening and pain-free independence in ADL, IADL, and vocational tasks. Home Exercise Tendon glides for hand, composite squeeze of theraputty Program Reviewed with Goals,Progress Being Made,Home Exercise Program Patient/Caregiver Patient/Caregiver Good Understanding -
--- NOTE | 2025-04-20 11:48 | OT.OP.TRT ---
Visit Care Team Role Provider Type TOMAS SarmientoP- Family Provider Advanced Transportation Supervisor Primary Care Provider Specialty: Family Practice Address: [address] [place] [address]. [address], [address] Phone: Fax: Email: [email or web address] Cindi Anthony DO Attending Provider Physician Referring Provider Specialty: Orthopedics Orthopedic Surgery Address: [address] [place] [address], [id number] Email: [email or web address] Occupational Therapy Treatment Note OT Outpatient Treatment Note - Adult Start: 04/05/25 08:31 Freq: Status: Active Protocol: Document 04/20/25 10:45 (Rec: 04/13/25 15:52 [id number]) OT Outpatient Adult Treatment Note Session Time Visit Start Date 04/20/25 Visit Start Time 10:45 Visit Stop Time 10:30 Visit Information Visit Number 3 of 12 Plan of Care Dates 04/05/25-05/17/25 Insurance no pre-auth;no copay/deductible;max 12 OT visits, Information including 1 OT eval Setting Treatment Setting Outpatient Care Visit Type Note Type Treatment Note - Subjective Identification Type Name Identification Medical Record Reconciled With Observations I really only notice pain at night and when i'm doing some of the theraputty exercises Patient/Caregiver Good Compliance with Home Exercise Program - Objective Short Term Goals Within 3-4 Weeks: 1. Patient will be independent with HEP and pain management modalities for home carryover of therapeutic goals for increased independence with functional tasks . 2. Patient will demonstrate increased L hand student activities director strength to at least 22 lb average without pain above 3 /10 to improve efficiency in jar opening and carrying objects. 3. Patient will increase L 3-jaw pinch to at least 12 lb average to improve dexterity for fine motor work tasks. 4. Patient will verbalize and demonstrate independence with 3 pain management strategies (heat, contrast bath, activity modification) for improved work tolerance. Correction Goals Within 5-6 Weeks: 1. Patient will demonstrate L hand student activities director strength of >/= 24.3lb to enable safe, efficient animal restraint during work tasks. 2. Patient will demonstrate L 3-jaw and lateral pinch strength >/= 15lb for 3-jaw and 13lb for lateral pinch to perform blood draws and handle work tools without pain. 3. Patient will score =10 on the QuickDASH Work Module, indicating improved functional ability and reduced disability. - [facility] dexterity/finger isolation with Tap It mode: Level scores: 1: 88.6% accuracy; 22.42sec 2: 93.9% accuracy; 25.04 sec 3: 96.9% accuracy; 21.79 sec 4: 100% accuracy; 12.13 Visual Cues Mod Cues Verbal Cues Max Cues Tolerance Good Exercises 1 Descriptor Reviewed tendon glides, pt indep with form and reps, 2x5 Flexbar (yellow) - ulnar/radial deviation, wrist flex/ ext, supin/pron, 2 x10 Min visual/verbal cues for correct form, mild aching in hand after but quickly resolved Clothespin activity alternating pinching with each finger 1x15 with min verbal cues to alternate, 1x15 moving clothespins with sustained ulnar grasp with good return demo and min verbal cues, mild fatigue on last set noted - Assessment Patient Response to Good Treatment Rehabilitation Excellent Potential Impairments ADLs,Coordination/Dexterity,Flexibility,Functional Identified Activities,Motor Function,Pain,Weakness,Recreational Activities,Meaningful Activities,Stiffness,Work Capacity,Soft Tissue Mobility Progress Towards Good Progress Goals Assessment of Improving Overall Progress Assessment of Patient demonstrates steady progress in recovery of L Improvement hand function following 4th metacarpal fracture. She is now independent with tendon glides and demonstrates good carryover of HEP. Pourer strengthening and endurance activities were progressed today using FlexBar, graded clothespin pinching tasks, and digital dexterity training via the Dexteria murtaza. She required minimal visual and verbal cues for correct form, with only mild , transient aching and fatigue noted at the end of tasks. Mild edema remains present between the 2nd and 3rd MCP joints, but swelling has improved compared to prior sessions. Patient reports ongoing discomfort with resisted gripping and lifting but describes it as manageable. Overall, patient is tolerating progression well, demonstrates excellent compliance with HEP and use of L hand in daily tasks, and is showing improvement in dexterity, pinch strength, and endurance. Continued skilled OT is indicated to address residual swelling, increase student activities director and pinch strength toward functional norms, and improve tolerance for sustained grasp and resistance-based tasks required for ADL, IADL, and work -related activities. Prognosis remains excellent with ongoing graded strengthening and functional task integration. Home Exercise Tendon glides for hand, composite squeeze of theraputty Program , progressing theraputty Reviewed with Goals,Progress Being Made,Home Exercise Program Patient/Caregiver Patient/Caregiver Good Understanding - Plan Therapy Continue with Current Program Recommendations Amount of Therapy 2 Months Recommended Frequency of Twice a Week Treatment Length of Session 45 Minutes Therapeutic Contents Active Range of Motion,Adaptive Equipment Education, Client Education,Functional Activities,Home Exercise Program,Manual Therapy,Education,Self-Care,Stretching/ Flexibility Activities,Therapeutic Activities, Therapeutic Exercises,Work Conditioning,Modalities Modalities As Needed Types of Modalities Ice Massage,Other Additional Types of MHP, paraffin Modalities
--- NOTE | 2025-04-20 16:00 | OT.OP.TRT ---
Visit Care Team Role Provider Type TOMAS SarmientoP- Family Provider Advanced Forensic Science Examiner Primary Care Provider Specialty: Family Practice Address: [address] [place] [address]. [address], [address] Phone: Fax: Email: [email or web address] Cindi Anthony DO Attending Provider Physician Referring Provider Specialty: Orthopedics Orthopedic Surgery Address: [address] [place] [address], [address] Email: [email or web address] Occupational Therapy Treatment Note OT Outpatient Treatment Note - Adult Start: 04/05/25 08:31 Freq: Status: Active Protocol: Document 04/20/25 10:45 (Rec: 04/13/25 15:52 [id number]) OT Outpatient Adult Treatment Note Session Time Visit Start Date 04/20/25 Visit Start Time 10:45 Visit Stop Time 11:30 Visit Information Visit Number 3 of 12 Plan of Care Dates 04/05/25-05/17/25 Insurance no pre-auth;no copay/deductible;max 12 OT visits, Information including 1 OT eval Setting Treatment Setting Outpatient Care Visit Type Note Type Treatment Note - Subjective Identification Type Name Identification Medical Record Reconciled With Observations I really only notice pain at night and when i'm doing some of the theraputty exercises Patient/Caregiver Good Compliance with Home Exercise Program - Objective Short Term Goals Within 3-4 Weeks: 1. Patient will be independent with HEP and pain management modalities for home carryover of therapeutic goals for increased independence with functional tasks . 2. Patient will demonstrate increased L hand decision analyst strength to at least 22 lb average without pain above 3 /10 to improve efficiency in jar opening and carrying objects. 3. Patient will increase L 3-jaw pinch to at least 12 lb average to improve dexterity for fine motor work tasks. 4. Patient will verbalize and demonstrate independence with 3 pain management strategies (heat, contrast bath, activity modification) for improved work tolerance. Mcc Goals Within 5-6 Weeks: 1. Patient will demonstrate L hand decision analyst strength of >/= 24.3lb to enable safe, efficient animal restraint during work tasks. 2. Patient will demonstrate L 3-jaw and lateral pinch strength >/= 15lb for 3-jaw and 13lb for lateral pinch to perform blood draws and handle work tools without pain. 3. Patient will score =10 on the QuickDASH Work Module, indicating improved functional ability and reduced disability. - Treatment 1 Descriptor Dext[employer] murtaza for dexterity/finger isolation with Tap It mode: Level scores: 1: 88.6% accuracy; 22.42sec 2: 93.9% accuracy; 25.04 sec 3: 96.9% accuracy; 21.79 sec 4: 100% accuracy; 12.13 Visual Cues Mod Cues Verbal Cues Max Cues Tolerance Good Exercises 1 Descriptor Reviewed tendon glides, pt indep with form and reps, 2x5 Flexbar (yellow) - ulnar/radial deviation, wrist flex/ ext, supin/pron, 2 x10 Min visual/verbal cues for correct form, mild aching in hand after but quickly resolved Clothespin activity alternating pinching with each finger 1x15 with min verbal cues to alternate, 1x15 moving clothespins with sustained ulnar grasp with good return demo and min verbal cues, mild fatigue on last set noted - Assessment Patient Response to Good Treatment Rehabilitation Excellent Potential Impairments ADLs,Coordination/Dexterity,Flexibility,Functional Identified Activities,Motor Function,Pain,Weakness,Recreational Activities,Meaningful Activities,Stiffness,Work Capacity,Soft Tissue Mobility Progress Towards Good Progress Goals Assessment of Improving Overall Progress Assessment of Patient demonstrates steady progress in recovery of L Improvement hand function following 4th metacarpal fracture. She is now independent with tendon glides and demonstrates good carryover of HEP. 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 She required minimal visual and verbal cues for correct form, with only mild , transient aching and fatigue noted at the end of tasks. Mild edema remains present between the 2nd and 3rd MCP joints, but swelling has improved compared to prior sessions. Patient reports ongoing discomfort with resisted gripping and lifting but describes it as manageable. Overall, patient is tolerating progression well, demonstrates excellent compliance with HEP and use of L hand in daily tasks, and is showing improvement in dexterity, pinch strength, and endurance. Continued skilled OT is indicated to address residual swelling, increase decision analyst and pinch strength toward functional norms, and improve tolerance for sustained grasp and resistance-based tasks required for ADL, IADL, and work -related activities. Prognosis remains excellent with ongoing graded strengthening and functional task integration. Home Exercise Tendon glides for hand, composite squeeze of theraputty Program , progressing theraputty Reviewed with Goals,Progress Being Made,Home Exercise Program Patient/Caregiver Patient/Caregiver Good Understanding - Plan Therapy Continue with Current Program Recommendations Amount of Therapy 2 Months Recommended Frequency of Twice a Week Treatment Length of Session 45 Minutes Therapeutic Contents Active Range of Motion,Adaptive Equipment Education, Client Education,Functional Activities,Home Exercise Program,Manual Therapy,Education,Self-Care,Stretching/ Flexibility Activities,Therapeutic Activities, Therapeutic Exercises,Work Conditioning,Modalities Modalities As Needed Types of Modalities Ice Massage,Other Additional Types of MHP, paraffin Modalities
--- NOTE | 2025-05-02 10:54 | OT.OP.TRT ---
Visit Care Team Role Provider Type TOMAS SarmientoP- Family Provider Advanced Accounts Payable Lead Primary Care Provider Specialty: Family Practice Address: [address] [place] [address]. [address], [address] Phone: Fax: Email: [email or web address] Cindi Anthony DO Attending Provider Physician Referring Provider Specialty: Orthopedics Orthopedic Surgery Address: [address] [place] [address], [address] Email: [email or web address] Occupational Therapy Treatment Note OT Outpatient Treatment Note - Adult Start: 04/05/25 08:31 Freq: Status: Active Protocol: Document 04/20/25 10:45 (Rec: 04/13/25 15:52 [id number]) OT Outpatient Adult Treatment Note Session Time Visit Start Date 04/20/25 Visit Start Time 10:45 Visit Stop Time 11:30 Visit Information Visit Number 3 of 12 Plan of Care Dates 04/05/25-05/17/25 Insurance no pre-auth;no copay/deductible;max 12 OT visits, Information including 1 OT eval Setting Treatment Setting Outpatient Care Visit Type Note Type Treatment Note - Subjective Identification Type Name Identification Medical Record Reconciled With Observations I really only notice pain at night and when i'm doing some of the theraputty exercises Patient/Caregiver Good Compliance with Home Exercise Program - Objective Short Term Goals Within 3-4 Weeks: 1. Patient will be independent with HEP and pain management modalities for home carryover of therapeutic goals for increased independence with functional tasks . 2. Patient will demonstrate increased L hand sanipractic physician strength to at least 22 lb average without pain above 3 /10 to improve efficiency in jar opening and carrying objects. 3. Patient will increase L 3-jaw pinch to at least 12 lb average to improve dexterity for fine motor work tasks. 4. Patient will verbalize and demonstrate independence with 3 pain management strategies (heat, contrast bath, activity modification) for improved work tolerance. Senior Care Goals Within 5-6 Weeks: 1. Patient will demonstrate L hand sanipractic physician strength of >/= 24.3lb to enable safe, efficient animal restraint during work tasks. 2. Patient will demonstrate L 3-jaw and lateral pinch strength >/= 15lb for 3-jaw and 13lb for lateral pinch to perform blood draws and handle work tools without pain. 3. Patient will score =10 on the QuickDASH Work Module, indicating improved functional ability and reduced disability. - Treatment 1 Descriptor DextStreamfile murtaza for dexterity/finger isolation with Tap It mode: Level scores: 1: 88.6% accuracy; 22.42sec 2: 93.9% accuracy; 25.04 sec 3: 96.9% accuracy; 21.79 sec 4: 100% accuracy; 12.13 Visual Cues Mod Cues Verbal Cues Max Cues Tolerance Good Exercises 1 Descriptor Reviewed tendon glides, pt indep with form and reps, 2x5 Flexbar (yellow) - ulnar/radial deviation, wrist flex/ ext, supin/pron, 2 x10 Min visual/verbal cues for correct form, mild aching in hand after but quickly resolved Clothespin activity alternating pinching with each finger 1x15 with min verbal cues to alternate, 1x15 moving clothespins with sustained ulnar grasp with good return demo and min verbal cues, mild fatigue on last set noted - Assessment Patient Response to Good Treatment Rehabilitation Excellent Potential Impairments ADLs,Coordination/Dexterity,Flexibility,Functional Identified Activities,Motor Function,Pain,Weakness,Recreational Activities,Meaningful Activities,Stiffness,Work Capacity,Soft Tissue Mobility Progress Towards Good Progress Goals Assessment of Improving Overall Progress Assessment of Patient demonstrates steady progress in recovery of L Improvement hand function following 4th metacarpal fracture. She is now independent with tendon glides and demonstrates good carryover of HEP. 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 She required minimal visual and verbal cues for correct form, with only mild , transient aching and fatigue noted at the end of tasks. Mild edema remains present between the 2nd and 3rd MCP joints, but swelling has improved compared to prior sessions. Patient reports ongoing discomfort with resisted gripping and lifting but describes it as manageable. Overall, patient is tolerating progression well, demonstrates excellent compliance with HEP and use of L hand in daily tasks, and is showing improvement in dexterity, pinch strength, and endurance. Continued skilled OT is indicated to address residual swelling, increase sanipractic physician and pinch strength toward functional norms, and improve tolerance for sustained grasp and resistance-based tasks required for ADL, IADL, and work -related activities. Prognosis remains excellent with ongoing graded strengthening and functional task integration. Home Exercise Tendon glides for hand, composite squeeze of theraputty Program , progressing theraputty Reviewed with Goals,Progress Being Made,Home Exercise Program Patient/Caregiver Patient/Caregiver Good Understanding - Plan Therapy Continue with Current Program Recommendations Amount of Therapy 2 Months Recommended Frequency of Twice a Week Treatment Length of Session 45 Minutes Therapeutic Contents Active Range of Motion,Adaptive Equipment Education, Client Education,Functional Activities,Home Exercise Program,Manual Therapy,Education,Self-Care,Stretching/ Flexibility Activities,Therapeutic Activities, Therapeutic Exercises,Work Conditioning,Modalities Modalities As Needed Types of Modalities Ice Massage,Other Additional Types of MHP, paraffin Modalities
--- NOTE | 2025-05-04 15:00 | OT.OPPN ---
Current Diagnoses Displaced fracture of shaft of fourth metacarpal bone, left hand, subsequent encounter for fracture with routine healing (05/04/25) OT Progress Note OT Outpatient Treatment Note - Adult Start: 04/05/25 08:31 Freq: Status: Active Protocol: Document 05/04/25 10:45 (Rec: 05/02/25 11:00 [id number]) OT Outpatient Adult Treatment Note Session Time Visit Start Date 05/04/25 Visit Start Time 10:45 Visit Stop Time 11:30 Visit Information Visit Number 4 of 12 Plan of Care Dates 04/05/25-05/17/25 Insurance no pre-auth;no copay/deductible;max 12 OT visits, Information including 1 OT eval Setting Treatment Setting Outpatient Care Visit Type Note Type Progress Note - Subjective Identification Type Name Identification Medical Record Reconciled With Observations I have been trying a lot of things I couldn't do before and there is some discomfort with some things but overall, its far less painful and limiting Patient/Caregiver Good Compliance with Home Exercise Program - Objective Short Term Goals Within 3-4 Weeks: 1. Patient will be independent with HEP and pain management modalities for home carryover of therapeutic goals for increased independence with functional tasks . [MET 05/04/2025] 2. Patient will demonstrate increased L hand beef pusher strength to at least 22 lb average without pain above 3 /10 to improve efficiency in jar opening and carrying objects. [PROGRESSING 05/04/25] 3. Patient will increase L 3-jaw pinch to at least 12 lb average to improve dexterity for fine motor work tasks. [PROGRESSING 05/04/25] 4. Patient will verbalize and demonstrate independence with 3 pain management strategies (heat, contrast bath, activity modification) for improved work tolerance. [ MET 05/04/25] Seamer Panty Hose Goals Within 5-6 Weeks: 1. Patient will demonstrate L hand beef pusher strength of >/= 24.3lb to enable safe, efficient animal restraint during work tasks. [PROGRESSING 05/04/25] 2. Patient will demonstrate L 3-jaw and lateral pinch strength >/= 15lb for 3-jaw and 13lb for lateral pinch to perform blood draws and handle work tools without pain. [PROGRESSING 05/04/25] 3. Patient will score =10 on the QuickDASH Work Module, indicating improved functional ability and reduced disability. [PROGRESSING 05/04/25] - Exercises 1 Descriptor Reviewed tendon glides, pt indep with form and reps, 2x5 Flexbar (red) - ulnar/radial deviation, wrist flex/ext, supin/pron, 2 x10 Min visual/verbal cues for correct form, mild aching in hand after but quickly resolved C-clip activity (increased resistance) alternating pinching with 2 fingers 1x10 with min verbal cues to alternate, 1x10 moving clothespins with sustained ulnar grasp with good return demo and min verbal cues, mild fatigue on last set noted with multiple drops - Assessment Patient Response to Good Treatment Rehabilitation Excellent Potential Impairments ADLs,Coordination/Dexterity,Flexibility,Functional Identified Activities,Motor Function,Pain,Weakness,Recreational Activities,Meaningful Activities,Stiffness,Work Capacity,Soft Tissue Mobility Progress Towards Good Progress Goals Assessment of Improving Overall Progress Assessment of Patient is demonstrating steady improvement in L hand Improvement strength and functional tolerance following 4th metacarpal fracture. She is now independent with tendon glides and has demonstrated good compliance with her HEP, warranting progression from yellow to pink theraputty for strengthening, with education provided on alternating resistances to appropriately challenge both flexors and extensors. FlexBar resistance was also progressed to red, and patient required only minimal cues for correct form. She noted mild aching with use, which resolved quickly post-activity, indicating appropriate tissue challenge without adverse response. During pinch activities with the C-clip and clothespins , patient demonstrated increased tolerance for resistance and was able to complete all trials with good effort, though mild fatigue and multiple drops were observed on the final set, reflecting ongoing pinch weakness and endurance deficits. Overall, patient is progressing appropriately with strengthening, shows good understanding and adherence to recommendations, and continues to benefit from skilled OT for safe progression of graded resistance, functional strengthening, and endurance training to support independence in ADLs, IADLs, and eventual full return to work tasks. Home Exercise Tendon glides for hand, composite squeeze of theraputty Program , progressing theraputty Reviewed with Goals,Progress Being Made,Home Exercise Program Patient/Caregiver Patient/Caregiver Good Understanding - Plan Therapy Continue with Current Program Recommendations Amount of Therapy 2 Months Recommended Frequency of Twice a Week Treatment Length of Session 45 Minutes Therapeutic Contents Active Range of Motion,Adaptive Equipment Education, Client Education,Functional Activities,Home Exercise Program,Manual Therapy,Education,Self-Care,Stretching/ Flexibility Activities,Therapeutic Activities, Therapeutic Exercises,Work Conditioning,Modalities Modalities As Needed Types of Modalities Ice Massage,Other Additional Types of MHP, paraffin Modalities If you are in agreement with this Plan of Care, please return a signed and dated copy. I have reviewed this Plan of Care and certify that the skilled therapy services above are required to meet the patient?s needs. Physician Signature Date Printed Name and Credentials Clinical Instructor Signature Printed Name and Credentials
--- NOTE | 2025-06-20 11:10 | OT.OP.DC ---
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 Outpatient OT Outpatient Adult Evaluation Start: 04/05/25 08:31 Freq: Status: Active Protocol: Document 04/05/25 09:45 (Rec: 04/05/25 08:40 [id number]) General Information - Adult Visit Information Visit Number 1 of 12 Plan of Care Dates 04/05/25-05/17/25 Insurance no pre-auth;no copay/deductible;max 12 OT visits, Information including 1 OT evaluation Session Time Visit Start Date 04/05/25 Visit Start Time 09:45 Visit Stop Time 10:30 Setting Treatment Setting Outpatient Care Visit Type Note Type Initial Evaluation Referral Referring Physician Dr. Cindi Anthony Reason for Referral L 4th metacarpal fracture Identification Identification Yes Confirmed Identification EMR Confirmed By Medical Information Medical History Pt fell at home 02/16/25 and was casted for 4 weeks (the initial cast immobilized her entire hand blocking thumb and PIP joints, she had to get it recasted at some point during the 4 weeks and was placed in a new cast that allowed motion of thumb), and was then placed in a splint for 2 weeks, per pt, she has been cleared with no restrictions per MD Social Information Social History I really only came because my job said I needed to for me to return to work but, I don't think it will impact my ability to do my job Patient Questionnaires Quick Dash- Upper Extremity Quick Dash UE Score 25 Quick Dash UE 20 to 39% Impaired (Score 20-39) Impairment Quick Dash- Work and Sports Modules Quick Dash W&S Score W: 56.3 Quick Dash Work and 40 to 59% Impaired (Score 40-59) Sport Impairment Goals Objective Measurements Objective MMT BUE WFL, AROM of BUE WFL, Measurements Bindery Helper: R: - Average: 27lb L: 2018/18 - Average: 18.7lb 3 Jaw : R: /16 - Average: 16.7lb L: 9.5/9/9 - Average: 9.2lb Lateral Pinch: R: / - Average: 14.3lb L: 11/11/10.5 - Average: 10.8lb Mild swelling noted at L dorsal palm. Patient reports minimal resting pain (0?1/10) and activity-related pain up to 5/10, resolving with rest. Sensory: reports mild numbness in L palm; denies tingling. Treatment Treatment Education provided on injury, anatomy of hand, etiology of presenting symptoms, tendon glides, theraputty- based hoop punch and coiler operator strengthening, retrograde massage, edema management (elevation, thermal modalities, contrast baths). Patient demonstrated good understanding and return demonstration of exercises. Short Term Goals Short Term Goals Within 3-4 Weeks: 1. Patient will be independent with HEP and pain management modalities for home carryover of therapeutic goals for increased independence with functional tasks . 2. Patient will demonstrate increased L hand hoop punch and coiler operator strength to at least 22 lb average without pain above 3 /10 to improve efficiency in jar opening and carrying objects. 3. Patient will increase L 3-jaw pinch to at least 12 lb average to improve dexterity for fine motor work tasks. 4. Patient will verbalize and demonstrate independence with 3 pain management strategies (heat, contrast bath, activity modification) for improved work tolerance. Longterm Goals Longterm Goals Within 5-6 Weeks: 1. Patient will demonstrate L hand hoop punch and coiler operator strength of >/= 24.3lb to enable safe, efficient animal restraint during work tasks. 2. Patient will demonstrate L 3-jaw and lateral pinch strength >/= 15lb for 3-jaw and 13lb for lateral pinch to perform blood draws and handle work tools without pain. 3. Patient will score =10 on the QuickDASH Work Module, indicating improved functional ability and reduced disability. Assessment/Plan Assessment Patient Response Good Rehabilitation Excellent Potential Impairments ADLs,Coordination/Dexterity,Flexibility,Functional Identified Activities,Motor Function,Pain,Weakness,Range of Motion ,Recreational Activities,Meaningful Activities, Stiffness,Work Capacity,Soft Tissue Mobility,Processing of Sensory Input Progress Towards Good Progress Goals Treatment Assessment 29 year old right hand dominant female referred by Dr. Cindi Anthony s/p GLF while getting dressed with resultant fracture of L 4th metacarpal on 02/16/25. Pt reports falling while getting dressed and landing on her closed left fist in an attempt to catch herself. She was immobilized in a cast for 4 weeks?initially in a cast that restricted motion of the thumb and PIP joints, later replaced with a cast allowing thumb motion?followed by 2 weeks in a splint. Per patient report, she has been cleared for unrestricted activity by her physician. She presents to occupational therapy at the request of her employer to confirm work readiness and address any residual deficits. 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 She reports her primary functional difficulties include opening jars, holding plates, making a tight fist, and gripping objects firmly. 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 Patient reports she can modify most tasks but anticipates pain as a limiting factor. She has currently been managing ADLs, IADL, childcare, and pet care independently with modifications. Pain is primary limiting factor for job-related tasks rather than strength alone. Presentation is consistent with post- immobilization weakness, mild residual edema, and activity-provoked pain in the left hand following a healed metacarpal fracture. The mild sensory change in the palm is likely secondary to post-casting soft tissue adaptation or mild nerve irritation. Functional tolerance is limited primarily by discomfort during gripping tasks, with measurable deficits in hoop punch and coiler operator and pinch strength compared to the right hand. Skilled OT is indicated to address strength, endurance, pain modulation, edema management, and sensory re- education. Home Exercise Tendon Glides, Theraputty exercises, thermal modalities Program for pain management Reviewed with Goals,Progress Being Made,Home Exercise Program Patient Patient Good Understanding Plan Length of treatment 6 (weeks) Plan of Care Start 04/05/25 Date Plan of Care End 05/17/25 Date Treatment Frequency Twice a Week Treatment Duration 45 Minutes Therapeutic Contents Active Range of Motion,Adaptive Equipment Education, Client Education,Functional Activities,Home Exercise Program,Education,Self-Care,Stretching/Flexibility Activities,Therapeutic Activities,Therapeutic Exercises ,Modalities Modalities As Needed Types of Modalities Contrast Bath,Ice Massage,Other Additional Types of MHP, paraffin Modalities Patient Instruction Home Exercise Program,Plan of Care,Questions/Concerns Patient Continue with Current Program Recommendations Functional Wrist/Hand Scan Hand Side Sensory Assessment Sensory Profile2 OT Outpatient Treatment Note - Adult Start: 04/05/25 08:31 Freq: Status: Active Protocol: Document 06/20/25 11:06 (Rec: 06/20/25 11:10 [id number]) OT Outpatient Adult Treatment Note Visit Information Plan of Care Dates 04/05/25-05/17/25 Insurance no pre-auth;no copay/deductible;max 12 OT visits, Information including 1 OT eval Setting Treatment Setting Outpatient Care Visit Type Note Type Discharge Summary - - Objective Short Term Goals Within 3-4 Weeks: 1. Patient will be independent with HEP and pain management modalities for home carryover of therapeutic goals for increased independence with functional tasks . [MET 05/04/2025] 2. Patient will demonstrate increased L hand hoop punch and coiler operator strength to at least 22 lb average without pain above 3 /10 to improve efficiency in jar opening and carrying objects. [PROGRESSING 05/04/25] 3. Patient will increase L 3-jaw pinch to at least 12 lb average to improve dexterity for fine motor work tasks. [PROGRESSING 05/04/25] 4. Patient will verbalize and demonstrate independence with 3 pain management strategies (heat, contrast bath, activity modification) for improved work tolerance. 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 Patient will demonstrate L hand hoop punch and coiler operator strength of >/= 24.3lb to enable safe, efficient animal restraint during work tasks. [PROGRESSING 05/04/25] 2. Patient will demonstrate L 3-jaw and lateral pinch strength >/= 15lb for 3-jaw and 13lb for lateral pinch to perform blood draws and handle work tools without pain. [PROGRESSING 05/04/25] 3. Patient will score =10 on the QuickDASH Work Module, indicating improved functional ability and reduced disability. 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 She was immobilized in a cast for 4 weeks (initially restricting thumb and PIP motion, later recasted to allow thumb movement) and then transitioned to a splint for 2 weeks before being cleared for unrestricted activity by her referring physician. She was referred to occupational therapy to address residual weakness, stiffness, and pain limiting full use of her left hand for daily and work-related activities. At the time of initial evaluation, patient demonstrated mild dorsal hand edema, mild activity-related pain up to 5/10, and measurable strength deficits compared to the right hand (L hoop punch and coiler operator avg. 18.7 lb vs. R 27 lb; L 3- jaw 9.2 lb vs. R 16.7 lb; L lateral pinch 10.8 lb vs. R 14.3 lb). Sensation was intact except for mild palm numbness, and ROM was within functional limits bilaterally. Primary limitations included discomfort and reduced endurance with gripping, jar opening, and fine motor tasks. Patient participated in a skilled OT program focused on graded strengthening, pain management, and functional reintegration of the left hand. Interventions included tendon glides, theraputty exercises, FlexBar for forearm and wrist strengthening, clothespin and C-clip pinch activities, dexterity tasks (Dexteria murtaza), paraffin therapy, retrograde massage, and education in thermal modalities, contrast baths, and joint protection/activity modification. Patient demonstrated consistent progress, good comprehension of education, and strong adherence to her home program. Patient last attended therapy on 05/04/25 and has not returned for follow-up after canceling her scheduled visit on 05/05/25. She has not been seen in over 45 days , and her plan of care has . At last contact, she was demonstrating good compliance with her HEP, improving strength, reduced swelling, and progress toward functional goals. Patient is being formally discharged at this time due to expiration of the plan of care and lack of follow-up . She may request a new referral from her physician if functional deficits or pain persist or if additional therapy is indicated in the future. Home Exercise Tendon glides for hand, composite squeeze of theraputty Program , progressing theraputty - Plan Therapy Discharge to Home Exercise Program Recommendations Amount of Therapy No Further Therapy Recommended Frequency of No Further Therapy Treatment Therapeutic Contents Active Range of Motion,Adaptive Equipment Education, Client Education,Functional Activities,Home Exercise Program,Manual Therapy,Education,Self-Care,Stretching/ Flexibility Activities,Therapeutic Activities, Therapeutic Exercises,Work Conditioning,Modalities
== END 2025-06-21 09:46 | disposition home or self-care (01) ==
LOC: OT 10:45
PROVIDERS: Family Provider Nurse Practitioner Family; PCP Nurse Practitioner Family; Referring Provider Orthopaedic Surgery; Visit Provider Orthopaedic Surgery
DX: S62.325D Displaced fracture of shaft of fourth metacarpal bone, left hand, subsequent encounter for fracture with routine healing (principal)
CPT/HCPCS: 97110; 97165; 97530

== ENCOUNTER → 2025-05-19 11:57 | Outpatient (CLI) | payer OTHER, SELFPAY ==
--- NOTE | 2025-05-19 11:58 | DI.US.S_ITS ---
PROCEDURE: US PELVIC COMPLETE INDICATIONS: Irregular bleeding TECHNIQUE: Real-time scanning was performed of the pelvic organs, with image documentation. Additional endovaginal scanning was necessary due to incomplete visualization of the adnexal and endometrial structures by transabdominal scanning. COMPARISON: [facility], , US PELVIC COMPLETE, 08/15/2020, 7:19. FINDINGS: Uterus: Uterus is anteverted and normal in size at 7.3 x 4.9 x 3.5 cm. The myometrium is homogeneous. The endometrium measures 3 mm combined thickness. Ovaries: The right ovary measures 4.6 x 4.3 x 4.1 cm, with a calculated ovarian volume of 42 cc. Approximately 3.9 x 3.8 x 3.6 cm right ovarian/adnexal anechoic cyst with several areas of mural thickening. The left ovary measures 2.6 x 1.9 x 1.6 cm, with a calculated ovarian volume of 4.2 cc. The ovaries have a normal sonographic appearance. Less than 12 follicles can be seen in each ovary. No adnexal masses are seen. Other: No pathologic free abdominal or pelvic fluid. IMPRESSION: Mildly complex right ovarian/adnexal 3.9 cm cyst as discussed above. Otherwise negative pelvic ultrasound. If symptoms persist or worsen, or there is high clinical suspicion of pelvic abnormality, CT or MRI could be performed. Dictated by: Jw Rivers M.D. on 05/20/2025 at 14:40 Approved by: Jw Rivers M.D. on 05/20/2025 at 14:45
== END ==
PROVIDERS: Family Provider Nurse Practitioner Family; PCP Nurse Practitioner Family; Referring Provider Obstetrics & Gynecology; Visit Provider Obstetrics & Gynecology
DX: N92.6 Irregular menstruation, unspecified (principal); N83.291 Other ovarian cyst, right side
CPT/HCPCS: 76830; 76856

== ENCOUNTER → 2025-08-09 09:22 | Outpatient (CLI) | payer OTHER, SELFPAY ==
[2025-08-09 10:19] LABS: Add Manual Diff / Slide Review NO; Hematocrit 40.4 % (36-46); Hemoglobin 14.0 g/dL (12.0-16.0); Lymphocytes Absolute Auto 2000 /uL (1100-4500); Mean Corpuscular HGB Conc 34.7 % (30-36); Mean Corpuscular Hemoglobin 30.4 PG (26-34); Mean Corpuscular Volume 87.5 fL (80-100); Platelet Count 338 X10^3/uL (150-400)
[2025-08-09 10:55] LABS: HEMOLYSIS < 15 (0-50); Iron 155 ug/dL (37-170)
[2025-08-09 10:58] LABS: Blood Urea Nitrogen 13 mg/dL (7-17); Calcium 9.6 mg/dL (8.4-10.2); Carbon Dioxide 27 mmol/L (22-32); Chloride 101 mmol/L (98-107); Estimated Glomerular Filt Rate > 60 mL/min (>60); Glucose 133 mg/dL (70-99); HEMOLYSIS < 15 (0-50); Potassium 4.4 mmol/L (3.4-5.1); Sodium 138 mmol/L (137-145)
[2025-08-09 11:04] LABS: Percent Iron Saturation 43 % (15-50); Total Iron Binding Capacity 358 ug/dL (265-497); Transferrin 300 mg/dL (206-381)
[2025-08-09 11:27] LABS: TSH w/ Reflex to FT4 0.82 uIU/mL (0.47-4.68)
[2025-08-09 11:30] LABS: Ferritin 28 ng/mL (6-137)
== END ==
PROVIDERS: PCP Nurse Practitioner Family; Referring Provider Nurse Practitioner Family; Visit Provider Nurse Practitioner Family
DX: Z30.41 Encounter for surveillance of contraceptive pills (principal); D64.9 Anemia, unspecified; F41.9 Anxiety disorder, unspecified; F32.0 Major depressive disorder, single episode, mild; N94.6 Dysmenorrhea, unspecified
CPT/HCPCS: 36415; 80048; 82728; 83540; 83550; 84443; 85025